=== PATIENT | female | born 1940 | race Caucasian/White ===

== ENCOUNTER 2018-10-07 21:13 | Inpatient (IN) | payer SELFPAY ==
[~2018-10-07] VITALS: Ht 160 cm; Wt 54.2 kg
[2018-10-07] MEDS ORDERED: NKM (21:17)
[2018-10-07 21:54] VITALS: BP 134/72
--- NOTE | 2018-10-07 22:25 | NUR ---
ED Nurse Note: pt refused to draw blood at this time, informed Dr. Figueroa.
--- NOTE | 2018-10-07 22:50 | NUR ---
ED Nurse Note: Blood sample sent to Lab. waiting for urine sample.
[2018-10-07 22:59] LABS: BASOPHILS % (AUTO) 1.6 % (0.0-2.0); EOSINOPHILS % (AUTO) 0.8 % (0.0-3.0); HEMATOCRIT 37.8 % (37.0-47.0); HEMOGLOBIN 13.3 G/DL (12.0-16.0); LYMPHOCYTES % (AUTO) 17.6 % (20.0-45.0); MEAN CORPUSCULAR VOLUME 103 FL (80-99); MONOCYTES % (AUTO) 7.9 % (1.0-10.0); NEUTROPHILS % (AUTO) 72.1 % (45.0-75.0); PLATELET COUNT 241 K/UL (150-450); RED BLOOD COUNT 3.68 M/UL (4.20-5.40); RED CELL DISTRIBUTION WIDTH 11.6 % (11.6-14.8); WHITE BLOOD COUNT 7.2 K/UL (4.8-10.8)
[2018-10-07 23:04] LABS: ANION GAP 13 mmol/L (5-15); BLOOD UREA NITROGEN 19 mg/dL (7-18); CALCIUM 8.8 MG/DL (8.5-10.1); CARBON DIOXIDE 24 MMOL/L (21-32); CHLORIDE 101 MMOL/L (98-107); CREATININE 0.9 MG/DL (0.55-1.30); POTASSIUM 3.5 MMOL/L (3.5-5.1); SODIUM 138 MMOL/L (136-145)
[2018-10-07 23:09] LABS: ALANINE AMINOTRANSFERASE 44 U/L (12-78); ALBUMIN 3.5 G/DL (3.4-5.0); ALBUMIN/GLOBULIN RATIO 0.9 (1.0-2.7); ALKALINE PHOSPHATASE 93 U/L (46-116); ASPARTATE AMINO TRANSFERASE 57 U/L (15-37); BILIRUBIN,TOTAL 0.4 MG/DL (0.2-1.0)
[2018-10-07] MEDS ORDERED: Morphine Sulfate 4mg/ml Inj (IV USE ONLY) IVP ONE (23:45)
[2018-10-08] VITALS (11 sets, daily range): BP systolic 109–157; BP diastolic 53–96
[2018-10-08 00:14] LABS: APPEARANCE,URINE CLEAR; BILIRUBIN, URINE NEGATIVE (NEGATIVE); COLOR,URINE PALE YELLOW; GLUCOSE, URINE (UA) NEGATIVE (NEGATIVE); KETONES,URINE NEGATIVE (NEGATIVE); LEUKOCYTE ESTERASE ,URINE 1+ (NEGATIVE); NITRITE,URINE NEGATIVE (NEGATIVE); PH,URINE 6.5 (4.5-8.0); PROTEIN,URINE 1+ (NEGATIVE); UROBILINOGEN,URINE NORMAL MG/DL (0.0-1.0)
--- NOTE | 2018-10-08 00:21 | Emergency Room Report ---
History of Present Illness General Chief Complaint: Multiple Trauma/Fall Source: Patient Present Illness HPI Patient presents with complaints of left-sided pain points to the hip area and left upper chest area there was a report of the patient falling against a fire hydrant Is unclear if the patient has some underlying psychiatric medical condition She appears to have some flight of thought Has to be refocused several times to obtain appropriate history Denies any short of breath denies any abdominal pain Pain is severe more on the left hip region Allergies: Coded Allergies: No Known Allergies (Unverified , 10/07/18) Patient History Past Medical History: see triage record Pertinent Family History: none Last Menstrual Period: n/a Reviewed Nursing Documentation: PMH: Agreed; PSxH: Agreed Nursing Documentation-PMH Past Medical History: No Stated History Review of Systems All Other Systems: negative except mentioned in HPI Physical Exam Vital Signs Date Time Temp Pulse Resp B/P (MAP) Pulse Ox O2 Delivery O2 Flow Rate FiO2 10/07/18 21:15 97.0 76 18 137/71 99 Room Air Sp02 EP Interpretation: reviewed, normal General Appearance: mild distress - In acute pain Head: normocephalic, atraumatic Eyes: bilateral eye PERRL, bilateral eye EOMI ENT: dry mucus membranes Neck: supple, thyroid normal Respiratory: lungs clear, no retraction, no accessory muscle use Cardiovascular #1: tachycardia Gastrointestinal: non tender, soft Musculoskeletal: other - Tender on palpation of the left hip region Neurologic: alert, responsive Psychiatric: anxious Skin: no rash, warm/dry Lymphatic: no adenopathy Medical Decision Making Diagnostic Impression: Primary Impression: Intertrochanteric fracture ER Course Multiple differentials and consideration Patient also has a difficult history of present illness she appears to have some psychiatric condition possibly dementia Patient's blood work is at baseline levels however CT imaging does confirm hip fracture Orthopedic surgery is consulted general medicine consulted for admission and patient will require further inpatient care Labs Test 10/07/18 22:40 10/07/18 23:55 White Blood Count 7.2 K/UL (4.8-10.8) Red Blood Count 3.68 M/UL (4.20-5.40) Hemoglobin 13.3 G/DL (12.0-16.0) Hematocrit 37.8 % (37.0-47.0) Mean Corpuscular Volume 103 FL (80-99) Mean Corpuscular Hemoglobin 36.2 PG (27.0-31.0) Mean Corpuscular Hemoglobin Concent 35.3 G/DL (32.0-36.0) Red Cell Distribution Width 11.6 % (11.6-14.8) Platelet Count 241 K/UL (150-450) Mean Platelet Volume 6.2 FL (6.5-10.1) Neutrophils (%) (Auto) 72.1 % (45.0-75.0) Lymphocytes (%) (Auto) 17.6 % (20.0-45.0) Monocytes (%) (Auto) 7.9 % (1.0-10.0) Eosinophils (%) (Auto) 0.8 % (0.0-3.0) Basophils (%) (Auto) 1.6 % (0.0-2.0) Sodium Level 138 MMOL/L (136-145) Potassium Level 3.5 MMOL/L (3.5-5.1) Chloride Level 101 MMOL/L (98-107) Carbon Dioxide Level 24 MMOL/L (21-32) Anion Gap 13 mmol/L (5-15) Blood Urea Nitrogen 19 mg/dL (7-18) Creatinine 0.9 MG/DL (0.55-1.30) Estimat Glomerular Filtration Rate mL/min (>60) Glucose Level 117 MG/DL (74-106) Calcium Level 8.8 MG/DL (8.5-10.1) Total Bilirubin 0.4 MG/DL (0.2-1.0) Aspartate Amino Transf (AST/SGOT) 57 U/L (15-37) Alanine Aminotransferase (ALT/SGPT) 44 U/L (12-78) Alkaline Phosphatase 93 U/L (46-116) Total Creatine Kinase 81 U/L (26-308) Creatine Kinase MB 1.8 NG/ML (0.0-3.6) Creatine Kinase MB Relative Index 2.2 Total Protein 7.4 G/DL (6.4-8.2) Albumin 3.5 G/DL (3.4-5.0) Globulin 3.9 g/dL Albumin/Globulin Ratio 0.9 (1.0-2.7) Lipase 232 U/L (73-393) Serum Alcohol 106 mg/dL Urine Color Pale yellow Urine Appearance Clear Urine pH 6.5 (4.5-8.0) Urine Specific [place] 1.015 (1.005-1.035) Urine Protein 1+ (NEGATIVE) Urine Glucose (UA) Negative (NEGATIVE) Urine Ketones Negative (NEGATIVE) Urine Blood 5+ (NEGATIVE) Urine Nitrite Negative (NEGATIVE) Urine Bilirubin Negative (NEGATIVE) Urine Urobilinogen Normal MG/DL (0.0-1.0) Urine Leukocyte Esterase 1+ (NEGATIVE) Urine RBC Tntc /HPF (0 - 2) Urine WBC 2-4 /HPF (0 - 2) Urine Squamous Epithelial Cells Few /LPF (NONE/OCC) Urine Bacteria Few /HPF (NONE) EKG Diagnostic Results Rate: normal Rhythm: NSR ST Segments: no acute changes Rhythm Strip Diag. Results EP Interpretation: yes Rate: 90 Rhythm: NSR, no PVC's, no ectopy Chest X-Ray Diagnostic Results Chest X-Ray Diagnostic Results : Chest X-Ray Ordered: Yes # of Views/Limited/Complete: 1 View Indication: Chest Pain EP Interpretation: Yes Interpretation: no consolidation, no effusion, no pneumothorax Impression: No acute disease - questionable previous foreign body left mid chest CT/MRI/US Diagnostic Results CT/MRI/US Diagnostic Results : Impression CT abdomen pelvisCT ABDOMEN & PELVIS Without Contrast: Diagnostic sensitivitylimited secondaryto the absence of IVcontrast. Small to moderate hiatal hernia. Hepatomegalywith diffuse steatosis. No evidence of solid or hollow viscus injury. Indeterminate 15 mmleft adrenal nodule. No evidence of hemoperitoneumor pneumoperitoneum. Comminuted left intertrochanteric hip fracture with moderate impaction. CT L-spineCT L SPINE: Diffuse osteopenia and multilevel degenerative changes. Bilateral spondylolysis L4/L5with grade 1 spondylolisthesis. Alignment is otherwise anatomic. Negative for compression or other acute fracture deformity. Last Vital Signs Date Time Temp Pulse Resp B/P (MAP) Pulse Ox O2 Delivery O2 Flow Rate FiO2 10/07/18 21:15 97.0 76 18 137/71 99 Room Air Status: improved Disposition: ADMITTED INPATIENT Condition: Serious Referrals: NOT CHOSEN IPA/,REFERRING (PCP) Sari Figueroa DO Oct 08, 2018 00:21
--- NOTE | 2018-10-08 01:02 | NUR ---
TRANSFER TO FLOOR: Patient transferred to [facility] as ordered . Report given to Nasrin/ARIC. Belongings SENT WITH pt and rechecked with RN.
--- NOTE | 2018-10-08 01:45 | NUR ---
NURSE NOTES: Received report from November RN Patient arrived from ED @0110. AOx3. VSS, no shortness of breath. Pain 05/01. left hip. Skin intact. Per patient, no health history. Drinks alcohol but will not say how often. Per ED, possibly homeless. Received orders from Dr. Lundberg. Says no DVT order at this time. Regular diet and morphine 2 mg IVP Q4H. No home meds. Boyfriend at bedside. Bed low, call light within reach. Addendum: 10/08/18 at 0153 by DYLAN JOHNSON RN NURSE NOTES: Neuro checks wnl. Addendum: 10/08/18 at 0221 by DYLAN JOHNSON RN more catheter intact, draining well, urine yellow.
[2018-10-08] MEDS: Morphine Sulfate 2mg/ml Inj(IV/IM USE ONLY) IVP PRN ×2 (02:17→08:18)
[2018-10-08 03:27] LABS: CKMB 1.8 NG/ML (0.0-3.6)
--- NOTE | 2018-10-08 07:35 | NUR ---
NURSE NOTES: WALKING ROUNDS DONE WITH OUTGOING RN.PATIENT AWAKE IN BED. SIGNIFICANT OTHER AT BEDSIDE. QUESTIONS ANSWERED. NEEDS MET AT THIS TIME. DISCUSSED PLAN OF CARE FOR THE DAY.VERBALIZED UNDERSTANDING. BED IN LOW AND LOCKED POSITION. CALL LIGHT WITHIN REACH.
--- NOTE | 2018-10-08 08:37 | NUR ---
HAND-OFF: Report given to ARIC FINLEY PATIENT STABLE.
--- NOTE | 2018-10-08 09:35 | Diagnostic Imaging Report ---
Indication: Abdominal pain Technique: Continuous helical transaxial imaging of the abdomen and pelvis was obtained from the lung bases to the pubic symphysis. No intravenous contrast was administered. Coronal 2-D reformats were also obtained. Automatic Exposure Control was utilized. Total Dose length Product (DLP): 587.[address] Dose Index Volume (CTDIvol): 10.99 mGy Comparison: none Findings: Mild reticular densities at the lung bases demonstrated. Hiatal hernia noted. Gallbladder stones versus sludge suspected in the dependent part of the gallbladder. Moderate aortoiliac calcifications are present. The appendix is air-filled and essentially normal. Bladder noted and unremarkable. Uterus is present and not evaluated well on this examination. There is evidence of an acute fracture of the intertrochanteric region of the left hip incidentally noted on this examination. Bones are osteopenic. There is hypertrophy of the facets in the lumbar spine at multiple levels. IMPRESSION: Acute intertrochanteric fracture of the left hip suboptimally evaluated on this examination as this is an incidental finding. No acute findings in the abdomen or pelvis identified. Gallbladder stones versus sludge Duodenal diverticulum Atherosclerotic disease. Normal appendix. Degenerative changes of the spine Hiatal hernia Mild reticular densities nonspecific at the lung bases. [facility] has communicated the preliminary results to the Emergency Department. Their findings are largely concordant with this report. The CT scanner at [facility] is accredited by the [employer] and the scans are performed using dose optimization techniques as appropriate to a performed exam including Automatic Exposure control.
--- NOTE | 2018-10-08 09:37 | Diagnostic Imaging Report ---
Indication: Back pain Technique: Continuous helical transaxial imaging of the lumbar spine was obtained from the lung bases to the pubic symphysis. No IV contrast was administered. Coronal 2-D reformats were also obtained. Study obtained in a Siemens sensation [address] Total Dose length Product (DLP): [address] Dose Index Volume (CTDIvol): 0.15, 10.99 mGy Comparison: None Findings: There is no acute fracture identified. The bones are moderately osteopenic. There is a moderate to severe disc disease at L2-3 with sclerosis and endplate spur formation, vacuum narrowing of the disc. There is narrowing of the disks elsewhere as well mild to moderate degree within the remainder of the lumbar spine. There is a mild anterolisthesis at L4-5. There is sclerosis irregularity and hypertrophy of the lumbar facets at multiple levels. Aorta is moderately calcified. IMPRESSION: No acute fracture identified. Degenerative changes as described above The CT scanner at [facility] is accredited by the [employer] and the scans are performed using dose optimization techniques as appropriate to a performed exam including Automatic Exposure control.
[2018-10-08 11:08] LABS: INR 0.9 (0.9-1.1)
--- NOTE | 2018-10-08 12:21 | NUR ---
CASE MANAGEMENT:REVIEW 78 YR OLD FEMALE BIBA FROM STREET CC: RAN INTO FIRE HYDRATE SI: DEHYDRATION. UNABLE TO AMBULATE ACUTE INTERTROCHANTERIC FRACTURE 97.0 76 18 137/71 99% ON RA BUN+19 IS: 500CC NS BOLUS IV ZOFRAN IV MORPHINE CT ABD/PELVIS/SPINE CXR : TO MED/SURG 3 EAST PLAN: SOCIAL SERVICE CONSULT INTERQUAL CRITERIA MET
--- NOTE | 2018-10-08 12:33 | Diagnostic Imaging Report ---
Indication: Dyspnea Comparison: None A single view chest radiograph was obtained. Findings: Bones are osteopenic. Cardiac silhouette is enlarged. Lungs are clear. No pleural effusion seen. Aorta is calcified. IMPRESSION: No acute disease
--- NOTE | 2018-10-08 12:42 | Diagnostic Imaging Report ---
Indications: Left hip pain Findings: Two views of the left hip and AP pelvis were obtained. There is a known fracture of the left intertrochanteric region of the hip better demonstrated on the CT of abdomen. The pelvis x-ray shows comminution of the fracture which is in mild varus angulation. The bones are osteopenic. Marmolejo catheter is present. Degenerative changes of the lower lumbar spine, sacroiliac joints and both hip joints noted. Degenerative changes of the pubic symphysis is noted. IMPRESSION: Acute left intertrochanteric hip fracture
--- NOTE | 2018-10-08 15:03 | NUR ---
Social Service Note Unable to obtain history from patient. Patient's boyfriend will visit patient this afternoon per primary nurse. Will meet with boyfriend Ovidio to obtain history.
--- NOTE | 2018-10-08 15:35 | Cardiology Report ---
APPROVED REPORT EKG Measurement Heart [id number] Sinus tachycardia Possible Left atrial enlargement Nonspecific ST and T wave abnormality Abnormal ECG
[2018-10-08] MEDS ORDERED: EPINEPHrine 1mg/1ml Amp ONE (16:39)
[2018-10-08] MEDS ORDERED: Bacitracin 50000 Units Vial ONE (16:40)
[2018-10-08] MEDS ORDERED: Bupivacaine 0.25% Inj 30ml INJ ONE (16:40)
--- NOTE | 2018-10-08 17:00 | NUR ---
NURSE NOTES: PATIENT SENT TO SURGERY VIA BED WITH JET RN ( OR) AT BEDSIDE. NO FAMILY OR FRIENDS HERE. JASPREET SIGNIFICANT OTHER WILL RETURN SOMETIME THIS EVENING.
[2018-10-08] MEDS ORDERED: Bupivacaine 0.5% Inj 30 ml vial INJ ONE (17:17)
[2018-10-08] MEDS ORDERED: Duramorph PF 5mg/10ml amp ONE (17:17)
[2018-10-08] MEDS ORDERED: Propofol 200mg/20ml IV ONE (17:19)
[2018-10-08] MEDS ORDERED: fentaNYL 100 mcg/2 mL IV ONE (17:19)
--- NOTE | 2018-10-08 17:38 | Anethesia Preoperative Eval ---
Anesthesia Pre-op PMH/ROS General Date of Evaluation: Oct 08, 2018 Time of Evaluation: 17:35 Anesthesiologist: Nadine ASA Score: ASA 3 Mallampati Score Class I : Soft palate, uvula, fauces, pillars visible Class II: Soft palate, uvula, fauces visible Class III: Soft palate, base of uvula visible Class IV: Only hard plate visible Mallampati Classification: Class II Surgeon: Sawyer Diagnosis: L hip Fx Surgical Procedure: ORIF of L hip Fx Anesthesia History: none Family History: no anesthesia problems Allergies: Coded Allergies: No Known Allergies (Unverified , 10/07/18) Medications: see eMAR Patient NPO?: Yes NPO Date: Oct 08, 2018 NPO Time: 0838 Past Medical History Cardiovascular: Reports: HTN - mild; Denies: CAD, [place], valve dz, arrhythmia, other Pulmonary: Denies: asthma, COPD, [place], other Gastrointestinal/Genitourinary: Reports: GERD; Denies: CRI, ESRD, other Neurologic/Psychiatric: Reports: depression/anxiety; Denies: dementia, CVA, TIA, other Endocrine: Denies: DM, hypothyroidism, steroids, other HEENT: Denies: cataract (L), cataract (R), glaucoma, JACKSON (L), JACKSON (R), other Hematology/Immune: Denies: anemia, DVT, bleeding disorder, other Musculoskeletal/Integumentary: Reports: DJD; Denies: OA, RA, DDD, edema, other PMH Narrative: as above PSxH Narrative: see H&P Anesthesia Pre-op Phys. Exam Physician Exam Last Vital Signs Date Time Temp Pulse Resp B/P (MAP) Pulse Ox O2 Delivery O2 Flow Rate FiO2 10/08/18 15:51 98.8 106 19 130/89 (103) 97 10/08/18 09:00 Room Air Constitutional: NAD Neurologic: CN 2-12 intact Cardiovascular: RRR Respiratory: CTA Airway Exam Mallampati Score: Class II MO: limited Neck: stiff ROM: limited Teeth: missing Dentures: no upper, no lower Anesthesia Pre-op A/P Labs Hematology Test 10/07/18 22:40 White Blood Count 7.2 K/UL (4.8-10.8) Red Blood Count 3.68 M/UL (4.20-5.40) L Hemoglobin 13.3 G/DL (12.0-16.0) Hematocrit 37.8 % (37.0-47.0) Mean Corpuscular Volume 103 FL (80-99) H Mean Corpuscular Hemoglobin 36.2 PG (27.0-31.0) H Mean Corpuscular Hemoglobin Concent 35.3 G/DL (32.0-36.0) Red Cell Distribution Width 11.6 % (11.6-14.8) Platelet Count 241 K/UL (150-450) Mean Platelet Volume 6.2 FL (6.5-10.1) L Neutrophils (%) (Auto) 72.1 % (45.0-75.0) Lymphocytes (%) (Auto) 17.6 % (20.0-45.0) L Monocytes (%) (Auto) 7.9 % (1.0-10.0) Eosinophils (%) (Auto) 0.8 % (0.0-3.0) Basophils (%) (Auto) 1.6 % (0.0-2.0) Coagulation Test 10/08/18 10:30 Prothrombin Time 10.0 SEC (9.30-11.50) Prothromb Time International Ratio 0.9 (0.9-1.1) Activated Partial Thromboplast Time 25 SEC (23-33) Chemistry Test 10/07/18 22:40 Sodium Level 138 MMOL/L (136-145) Potassium Level 3.5 MMOL/L (3.5-5.1) Chloride Level 101 MMOL/L (98-107) Carbon Dioxide Level 24 MMOL/L (21-32) Anion Gap 13 mmol/L (5-15) Blood Urea Nitrogen 19 mg/dL (7-18) H Creatinine 0.9 MG/DL (0.55-1.30) Estimat Glomerular Filtration Rate mL/min (>60) Glucose Level 117 MG/DL (74-106) H Calcium Level 8.8 MG/DL (8.5-10.1) Total Bilirubin 0.4 MG/DL (0.2-1.0) Aspartate Amino Transf (AST/SGOT) 57 U/L (15-37) H Alanine Aminotransferase (ALT/SGPT) 44 U/L (12-78) Alkaline Phosphatase 93 U/L (46-116) Total Creatine Kinase 81 U/L (26-308) Creatine Kinase MB 1.8 NG/ML (0.0-3.6) Creatine Kinase MB Relative Index 2.2 Troponin I 0.007 ng/mL (0.000-0.056) Total Protein 7.4 G/DL (6.4-8.2) Albumin 3.5 G/DL (3.4-5.0) Globulin 3.9 g/dL Albumin/Globulin Ratio 0.9 (1.0-2.7) L Lipase 232 U/L (73-393) Risk Assessment & Plan Assessment: ASA 3 Plan: SAB vs GA Status Change Before Surgery: No Pre-Antibiotics Drug: Ancef 1gr Given Within 1 Hr of Incision: Yes Time Given: 18:05 Aman Mccoy MD Oct 08, 2018 17:38
[2018-10-08] MEDS ORDERED: NS Irrig 1000ml ONE (18:00)
[2018-10-08] MEDS ORDERED: Sterile Water Irrig 1000ml IRRIG ONE (18:00)
[2018-10-08] MEDS ORDERED: LR 1000ml ONE (18:00)
--- NOTE | 2018-10-08 18:15 | Pre-Procedure Note/Attestation ---
Pre-Procedure Note/Attestation Complete Prior to Procedure Planned Procedure: left Procedure Narrative: Left hip nailing Indications for Procedure Pre-Operative Diagnosis: Left hip intertrochanteric fracture Attestation I attest that I discussed the nature of the procedure; its benefits; risks and complications; and alternatives (and the risks and benefits of such alternatives ), prior to the procedure, with the patient (or the patient's legal artists' booking representative). I attest that, if there was a reasonable possibility of needing a blood transfusion, the patient (or the patient's legal artists' booking representative) was given the [facility] standardized written summary, pursuant to the Julito Tiffanie Blood Safety Act ([place] Health and Safety Code # 1645, as amended). I attest that I re-evaluated the patient just prior to the surgery and that there has been no change in the patient's H&P, except as documented below: Eulogio Jacques MD Oct 08, 2018 18:15
--- NOTE | 2018-10-08 19:22 | Immediate Post-Op Evaluation ---
Immediate Post-Op Evalulation Immediate Post-Op Evalulation Procedure: L hip Fx ORIF Date of Evaluation: Oct 08, 2018 Time of Evaluation: 19:20 IV Fluids: 1000 Blood Products: none Estimated Blood Loss: 100 Urinary Output: 100 Blood Pressure Systolic: 110 Blood Pressure Diastolic: 60 Pulse Rate: 86 Respiratory Rate: 20 O2 Sat by Pulse Oximetry: 98 Temperature (Fahrenheit): 97.7 Pain Score (1-10): 1 Nausea: No Vomiting: No Patient Status: reacts, patent, none Hydration Status: adequate Aman Mccoy MD Oct 08, 2018 19:21
--- NOTE | 2018-10-08 19:26 | NUR ---
NURSE NOTES: Report taken from ARIC Case. Patient is off the unit in the OR.
--- NOTE | 2018-10-08 19:28 | NUR ---
HAND-OFF: Report given to VERONICA Keith RN.
--- NOTE | 2018-10-08 19:37 | Brief Operative Note ---
Immediate Post Operative Note Operative Note Pre-op Diagnosis: Left hip intertrochanteric fracture Procedure: Left hip nailing Post-op Diagnosis: Same Post-op Diagnosis: same as pre-op Findings: consistent w/pre-op dx studies Surgeon: Sawyer Anesthesia: general Specimen: none Complications: none Condition: stable Fluids: 100 ml Estimated Blood Loss: minimal Drains: none Implant(s) used?: No Eulogio Jacques MD Oct 08, 2018 19:37
--- NOTE | 2018-10-08 19:45 | History and Physical Report ---
DATE OF ADMISSION: 10/07/2018 REASON FOR ADMISSION: Fracture. HISTORY OF PRESENT ILLNESS: This is a 78-year-old homeless patient who fell at outside yesterday. She stated that it was dark and she tripped against fire hydrant. The patient was admitted to the hospital after being found to have a hip/femur fracture. She has been evaluated and is anticipated to undergo surgery this afternoon. On my evaluation, the patient is a very poor historian, however, her boyfriend is at bedside and he is able to provide most of the history. She denies any underlying medical issues such as cardiac, pulmonary, endocrine, or renal. She denies any carcinoma. She states she is not from the local area, but can stay with her boyfriend after discharge. HOME MEDICATIONS: None reported. SURGERIES: None reported. ALLERGIES: None reported. SOCIAL HISTORY: She admits to tobacco and alcohol use. Denies substance abuse or marijuana. REVIEW OF SYSTEMS: Denies any headaches, hematemesis, melena, hematochezia, night sweats, or weight loss. PHYSICAL EXAMINATION: GENERAL: Reveals a 78-year-old female. HEENT: Unremarkable. CHEST: Clear breath sounds bilaterally. HEART: Normal heart sounds. ABDOMEN: Soft. EXTREMITIES: No edema. NEUROLOGIC: Nonfocal. LABORATORY AND DIAGNOSTIC DATA: Lab testing shows normal CBC and BMP. Glucose 117. X-rays of the hip show a left intertrochanteric fracture. IMPRESSION: 1. Left hip fracture. 2. Homelessness. 3. Probable underlying psych disorder versus dementia. DISCUSSION: The patient is agreeable to surgery. Her boyfriend also concurs. She will be kept NPO and will undergo surgery this afternoon. It is my understanding that this has been scheduled. We will initiate IV fluids. Initiate DVT prophylaxis after surgery. We will follow carefully as transmission tester. Beka Lundberg M.D. DR: BIANCA JOB#: [id number] CC:
[2018-10-08] MEDS ORDERED: Metoclopramide 10mg/2ml Inj IVP SCH (19:46)
[2018-10-08] MEDS ORDERED: D5 1/2NS w/KCl 20mEq 1,000 ML IV SCH (21:00)
--- NOTE | 2018-10-08 23:15 | Consultation ---
DATE OF CONSULTATION: 10/08/2018 ORTHOPEDIC CONSULTATION CONSULTING PHYSICIAN: Eulogio Jacques M.D. REQUESTING PHYSICIAN: Beka Lundberg M.D. DIAGNOSIS: Left intertrochanteric hip fracture. HISTORY OF PRESENT ILLNESS: The patient is a 78-year-old woman with memory issues who slipped and fell. The history is unclear if she is unable to relate exactly what happened. PAST MEDICAL HISTORY: Unknown. ALLERGIES: Unknown. PHYSICAL EXAMINATION: GENERAL: She is resting comfortably in bed. EXTREMITIES: Left lower extremity movement causes pain at the left hip. NEUROLOGIC: Distal neurovascular examination of the left lower extremity is grossly intact. DIAGNOSTIC DATA: Radiographs, AP pelvis and left hip reveal a displaced comminuted intertrochanteric hip fracture. ASSESSMENT AND PLAN: The patient sustained a left intertrochanteric hip fracture. I have recommended hip nailing. All risks, benefits, and alternatives were reviewed in great detail. We will proceed to the operating room when available. Thank you for the opportunity to consult. Eulogio Jacques M.D. DR: BEVERLY/LUIS A JOB#: [id number] CC:
--- NOTE | 2018-10-08 23:30 | Operative Note - Dictated ---
DATE OF OPERATION: 10/08/2018 SURGEON: Eulogio Jacques M.D. MEDICAL TECHNICIANS: None. ANESTHESIA: General. COMPLICATIONS: None. ANTIBIOTICS: Ancef. PREOPERATIVE DIAGNOSIS: Left displaced intertrochanteric hip fracture. POSTOPERATIVE DIAGNOSIS: Left displaced intertrochanteric hip fracture. PROCEDURE PERFORMED: Left hip short nailing using a Parker and gamma nail with single hip screw and distal interlocking screw. BACKGROUND: The patient slipped and fell. She sustained the above injury. All risks, benefits, and alternatives of surgical intervention were discussed in great detail. Risks included, but were not limited to, bleeding, infection, neurovascular injury, need for additional surgical intervention, failure of pain relief, arthrofibrosis, complications of anesthesia, blood clots, stroke, heart attack, and potentially . She understood these risks, amongst others, and consent was signed. PROCEDURE IN DETAIL: The patient was brought into the operating room and placed supine on the operating room table. The fracture table was set up and all bony prominences appropriately padded. Fluoroscopic imaging confirmed appropriate fracture reduction in the anatomic position. The left hip was again verified for surgical site and prepped and draped in standard sterile fashion. An incision was created in line with the femur proximal to the trochanter and a greater trochanteric tip starting point was obtained. It was then over drilled and the 125-degree gamma 3 nail was secured into position. A center/center hip pin was then secured into position measuring 90 mm. It was compressed and locked, but to allow sliding. A distal interlocking static screw was then secured into position. All wounds were copiously irrigated and reapproximated using #0 Vicryl, 2-0 Vicryl, and Monocryl for skin care. Steri-Strips were used over Mastisol. Dry sterile dressing was applied. She tolerated the procedure well. There were no complications. I attest I performed the entire operation. She was transferred to recovery in good condition. Eulogio Jacques M.D. DR: HENRIQUE JOB#: [id number] CC:
[2018-10-09] VITALS: BP 112/62
[2018-10-09] MEDS: ceFAZolin 2gm/50ml Premix 50 ML IV SCH ×2 (02:11→09:38)
[2018-10-09 04:00] VITALS: BP 117/64
--- NOTE | 2018-10-09 06:58 | Pulmonology Progress Note ---
Assessment/Plan Assessment/Plan IMPRESSION: 1. Left hip fracture. S/p ORIF 2. Homelessness. 3. Probable underlying psych disorder versus dementia. DISCUSSION: Continue DVT prophylaxis. 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 Beka Lundberg M.D. Subjective Interval Events: POD #1; s/p ORIF; feeling well Constitutional: Reports: no symptoms HEENT: Repors: no symptoms Respiratory: Reports: no symptoms Cardiovascular: Reports: no symptoms Gastrointestinal/Abdominal: Reports: no symptoms Genitourinary: Reports: no symptoms Allergies: Coded Allergies: No Known Allergies (Unverified , 10/07/18) Objective Last 24 Hour Vital Signs Date Time Temp Pulse Resp B/P (MAP) Pulse Ox O2 Delivery O2 Flow Rate FiO2 10/09/18 04:00 98.6 104 17 117/64 (81) 96 10/09/18 00:00 98.8 105 17 112/62 (79) 90 10/08/18 21:00 Room Air 10/08/18 20:20 97.8 93 17 122/60 99 Room Air 10/08/18 20:00 91 14 114/62 98 Room Air 10/08/18 19:50 95 18 115/71 100 Nasal Cannula 3 10/08/18 19:40 93 17 110/53 100 Nasal Cannula 3 10/08/18 19:30 92 16 109/58 100 Nasal Cannula 3 10/08/18 19:21 86 20 98 10/08/18 19:18 97.7 96 20 110/67 100 Nasal Cannula 3 10/08/18 15:51 98.8 106 19 130/89 (103) 97 10/08/18 12:00 98.7 108 20 134/85 (101) 98 10/08/18 09:00 Room Air 10/08/18 08:48 98.2 10/08/18 08:00 98.8 103 20 157/96 (116) 96 Intake and Output 10/08/18 10/09/18 19:00 07:00 Intake Total 540 ml 410 ml Output Total 700 ml Balance 540 ml -290 ml Intake Oral 240 ml 360 ml IV Total 300 ml 50 ml Output Urine Total 700 ml # Voids 1 General Appearance: no acute distress HEENT: normocephalic Respiratory/Chest: chest wall non-tender, lungs clear Cardiovascular: normal peripheral pulses, normal rate Abdomen: normal bowel sounds, soft, non tender Laboratory Tests 10/08/18 10:30: Prothrombin Time 10.0, Prothromb Time International Ratio 0.9, Activated Partial Thromboplast Time 25 Current Medications Medications (Trade) Dose Ordered Sig/Noel Route PRN Reason Start Time Stop Time Status Last Admin Dose Admin Acetaminophen/ Hydrocodone Bitart ([place] 5/325) 2 tab Q6H PRN ORAL Severe Pain (Pain Scale 7-10) 10/08/18 19:45 10/15/18 19:44 Bisacodyl (Dulcolax) 10 mg Q12H PRN RECTAL Constipation 10/08/18 19:45 11/07/18 19:44 Cefazolin Sodium 50 ml @ 100 mls/hr Q8H IV 10/09/18 02:00 10/09/18 10:29 10/09/18 02:11 Dextrose/ Electrolytes 1,000 ml @ 75 mls/hr [id number] IV 10/08/18 21:00 11/07/18 20:59 10/08/18 21:03 Docusate Sodium (Colace) 100 mg THREE TIMES A DAY ORAL 10/09/18 09:00 11/08/18 08:59 Enoxaparin Sodium (Lovenox) 40 mg DAILY SUBQ 10/09/18 09:00 10/19/18 08:59 Hydromorphone HCl (Dilaudid) 2 mg Q3H PRN SUBQ breakthrough pain 10/08/18 20:00 10/15/18 19:44 Morphine Sulfate (Morphine Sulfate) 4 mg Q3H PRN IVP Severe Pain (Pain Scale 7-10) 10/08/18 19:45 10/15/18 19:44 Beka Lundberg MD Oct 09, 2018 06:58
--- NOTE | 2018-10-09 07:19 | NUR ---
HAND-OFF: Report given to ARIC Anderson. Patient awake and VS stable.
[2018-10-09 07:32] LABS: ANION GAP 8 mmol/L (5-15); BLOOD UREA NITROGEN 15 mg/dL (7-18); CALCIUM 8.2 MG/DL (8.5-10.1); CARBON DIOXIDE 26 MMOL/L (21-32); CHLORIDE 102 MMOL/L (98-107); CREATININE 0.9 MG/DL (0.55-1.30); POTASSIUM 4.1 MMOL/L (3.5-5.1); SODIUM 136 MMOL/L (136-145)
--- NOTE | 2018-10-09 07:34 | NUR ---
NURSE NOTES: Report received from ARIC Mallory. Pt in bed, awake, talkative, no complaints of pain, SCD on and working, pt's boyfriend at bedside, pt eating breakfast, bed in lowest position, call light within reach.
--- NOTE | 2018-10-09 07:50 | 48 Hour Post Anesthesia Eval ---
Post Anesthesia Evaluation Procedure: L hip Fx ORIF Date of Evaluation: Oct 09, 2018 Time of Evaluation: 06:19 Blood Pressure Systolic: 117 0: 64 Pulse Rate: 104 Respiratory Rate: 17 Temperature (Fahrenheit): 98.6 O2 Sat by Pulse Oximetry: 96 Airway: patent Nausea: No Vomiting: No Pain Intensity: 2 Hydration Status: adequate Cardiopulmonary Status: Stable Mental Status/LOC: patient returned to baseline Follow-up Care/Observations: 0 Post-Anesthesia Complications: 0 Follow-up care needed: N/A Darrell Rosales MD Oct 09, 2018 07:50
[2018-10-09 07:56] LABS: BASOPHILS % (AUTO) 0.9 % (0.0-2.0); EOSINOPHILS % (AUTO) 0.1 % (0.0-3.0); HEMATOCRIT 29.4 % (37.0-47.0); HEMOGLOBIN 10.1 G/DL (12.0-16.0); LYMPHOCYTES % (AUTO) 13.8 % (20.0-45.0); MEAN CORPUSCULAR VOLUME 104 FL (80-99); NEUTROPHILS % (AUTO) 74.3 % (45.0-75.0); PLATELET COUNT 155 K/UL (150-450); RED BLOOD COUNT 2.81 M/UL (4.20-5.40); RED CELL DISTRIBUTION WIDTH 11.6 % (11.6-14.8); WHITE BLOOD COUNT 8.9 K/UL (4.8-10.8)
[2018-10-09 08:00] VITALS: BP 126/77
[2018-10-09] MEDS: Docusate 100mg cap ORAL SCH ×3 (08:14→17:14)
[2018-10-09] MEDS: Enoxaparin 40mg Inj SUBQ SCH (08:14)
[2018-10-09 12:00] VITALS: BP 114/75
--- NOTE | 2018-10-09 12:09 | NUR ---
Social Service Note SW unable to obtain history from patient. Patient is a poor historian and was unable to answer basic question appropriately. Patient's boyfriend not a bedside Ovidio. JAY spoke with patient's brother Frederick [phone]. Frederick is limited with information regarding patient. Frederick states patient and his brother have been together for probably 20 years. For the past 8 years they have had periods of homelessness. Brother states they both drink Vodka on a regular basis. Due to this event patient's brother has rented them an apartment for temporary housing [address] [place] [id number]. Boyfriend doesn't have a phone. JAY explained to brother that when Ovidio contacts him to provide him SW contact information. Will monitor and follow up.
[2018-10-09] MEDS ORDERED: Tubing IV Secondary IV ONE (13:13)
--- NOTE | 2018-10-09 13:41 | NUR ---
NURSE NOTES: Pt worked with Physical Therapy, able to take a few steps with walker, up to chair for 2.5 hours. Discontinued Marmolejo, 225ml karoline urine out. Discussed with pt need to urinate within next 6 hours. Pt verbalizes understanding
--- NOTE | 2018-10-09 13:58 | NUR ---
NURSE NOTES: Left message for Dr. Lundberg, pt's HR 115 114/75. EKG shows sinus tachy.
--- NOTE | 2018-10-09 14:14 | NUR ---
CASE MANAGEMENT:REVIEW 10/09/18 SI: POD #1 S/P LT HIP SHORT NAILING 100.4 106 18 126/77 95% ON RA h/h-10.129.4 IS: LOVENOX SQ QD COLACE PO TID DILAUDID SQ Q3HRS PRN : MED/SURG STATUS 3 EAST PLAN:: WEIGHT BEARING TOLERATED
--- NOTE | 2018-10-09 14:20 | NUR ---
DISCHARGE PLAN PLAN IS FOR PATIENT TO RETURN HOME UPON DISCHARGE PLEASE SEE SOCIAL WORKERS NOTE ON 10/09/18 AT [id number]
[2018-10-09 16:00] VITALS: BP 124/79
--- NOTE | 2018-10-09 16:12 | NUR ---
P.T Note: P.T evaluation completed and treatment initiated. Please refer to P.T evaluation for current functional status. Pt is alert , oriented to self and place but not to time and current situation. Pt is pleasantly confused however follows simple one step commands. Pt is limited by L hip pain aggravated by movement initiation and fear of falling resulting resistance with mobility. Pt displays poor safety awareness and currently require MAX A X 1 , extended time and constant verbal and manual cues to initiate and complete Bed mobility and transfer mobility tasks. Pt was only able to take 3-4 tiny steps using the FWW and MOD A X 1. Pt is high fall risk and would require extensive rehab therefore needed SNF VS home with P.T. at UT. POC established. Will see patient for therapy during stay for ther ex, ADL/functional mobility training and gait training using the FWW until [place]. Thank you for this referral.
--- NOTE | 2018-10-09 16:20 | Diagnostic Imaging Report ---
INDICATION: Pain, intraoperative TECHNIQUE: Intraoperative imaging Fluoroscopy time: 24.3 seconds Total dose: 0.83041 mGym2 Total number of images: 4 COMPARISON: 10/08/2018 FINDINGS: Intraoperative images document surgical repair of previously demonstrated left hip intertrochanteric fracture with medullary antonette and compression screw IMPRESSION: Intraoperative imaging, as described
--- NOTE | 2018-10-09 19:42 | NUR ---
HAND-OFF: Report given to ARIC Mallory.
[2018-10-09 20:00] VITALS: BP 121/75
[2018-10-10] VITALS: BP 109/72
[2018-10-10 04:00] VITALS: BP 118/73
--- NOTE | 2018-10-10 07:05 | NUR ---
HAND-OFF: Report given to ARIC Anderson. Patient awake and VS stable.
--- NOTE | 2018-10-10 07:07 | NUR ---
NURSE NOTES: Report received from ARIC Mallory. Pt in bed, awake, talkative, no complaints of pain, no apparent distress noted, bed in lowest position, call light within reach.
[2018-10-10 07:46] LABS: BASOPHILS % (AUTO) 0.8 % (0.0-2.0); EOSINOPHILS % (AUTO) 0.1 % (0.0-3.0); HEMATOCRIT 28.2 % (37.0-47.0); HEMOGLOBIN 9.6 G/DL (12.0-16.0); LYMPHOCYTES % (AUTO) 11.6 % (20.0-45.0); MEAN CORPUSCULAR VOLUME 103 FL (80-99); MONOCYTES % (AUTO) 10.6 % (1.0-10.0); NEUTROPHILS % (AUTO) 76.9 % (45.0-75.0); PLATELET COUNT 151 K/UL (150-450); RED BLOOD COUNT 2.74 M/UL (4.20-5.40); RED CELL DISTRIBUTION WIDTH 11.3 % (11.6-14.8)
[2018-10-10 07:52] LABS: ANION GAP 12 mmol/L (5-15); BLOOD UREA NITROGEN 12 mg/dL (7-18); CALCIUM 8.7 MG/DL (8.5-10.1); CARBON DIOXIDE 24 MMOL/L (21-32); CHLORIDE 99 MMOL/L (98-107); CREATININE 0.8 MG/DL (0.55-1.30); POTASSIUM 3.7 MMOL/L (3.5-5.1); SODIUM 135 MMOL/L (136-145)
[2018-10-10 08:00] VITALS: BP 119/71
[2018-10-10] MEDS: Docusate 100mg cap ORAL SCH ×3 (08:28→17:21)
[2018-10-10] MEDS: Enoxaparin 40mg Inj SUBQ SCH (08:31)
[2018-10-10] MEDS: HYDROcodone/Acetamin 5/325 tab ORAL PRN ×2 (09:50→17:21)
[2018-10-10 12:00] VITALS: BP 101/66
--- NOTE | 2018-10-10 12:51 | Pulmonology Progress Note ---
Assessment/Plan Assessment/Plan IMPRESSION: 1. Left hip fracture. S/p ORIF 2. Homelessness. 3. Probable underlying psych disorder versus dementia. DISCUSSION: Continue DVT prophylaxis. 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 Beka Lundberg M.D. Subjective Interval Events: no new events; labs reviewed Constitutional: Reports: no symptoms HEENT: Repors: no symptoms Respiratory: Reports: no symptoms Cardiovascular: Reports: no symptoms Gastrointestinal/Abdominal: Reports: no symptoms Genitourinary: Reports: no symptoms Allergies: Coded Allergies: No Known Allergies (Unverified , 10/07/18) Objective Last 24 Hour Vital Signs Date Time Temp Pulse Resp B/P (MAP) Pulse Ox O2 Delivery O2 Flow Rate FiO2 10/10/18 10:20 100.8 10/10/18 09:00 Room Air 10/10/18 08:00 100.8 100 24 119/71 (87) 94 10/10/18 04:00 99.1 103 24 118/73 (88) 95 10/10/18 00:00 98.7 114 20 109/72 (84) 92 10/09/18 21:00 Room Air 10/09/18 20:00 99.0 116 20 121/75 (90) 92 10/09/18 16:00 98.1 111 20 124/79 (94) 97 Intake and Output 10/09/18 10/10/18 18:59 06:59 Intake Total 240 ml 280 ml Output Total 225 ml Balance 15 ml 280 ml Intake Oral 240 ml 280 ml Output Urine Total 225 ml # Voids 1 2 # Bowel Movements 1 General Appearance: no acute distress HEENT: normocephalic Respiratory/Chest: chest wall non-tender, lungs clear Cardiovascular: normal peripheral pulses, normal rate Abdomen: normal bowel sounds Microbiology Date/Time Source Procedure Growth Status 10/08/18 00:55 Nasal Nares MRSA Culture - Final NO METHICILLIN RESISTANT STAPH AUREUS... Complete 10/08/18 00:55 Rectum - Final NO CARBAPENEM-RESISTANT ENTEROBACTERI... Complete 10/08/18 00:55 Rectum VRE Culture - Final NO VANCOMYCIN RESISTANT ENTEROCOCCUS ... Complete Laboratory Tests 10/10/18 06:49: White Blood Count 9.0, Red Blood Count 2.74L, Hemoglobin 9.6L, Hematocrit 28.2L , Mean Corpuscular Volume 103H, Mean Corpuscular Hemoglobin 35.2H, Mean Corpuscular Hemoglobin Concent 34.1, Red Cell Distribution Width 11.3L, Platelet Count 151, Mean Platelet Volume 7.0, Neutrophils (%) (Auto) 76.9H, Lymphocytes (%) (Auto) 11.6L, Monocytes (%) (Auto) 10.6H, Eosinophils (%) (Auto ) 0.1, Basophils (%) (Auto) 0.8, Sodium Level 135L, Potassium Level 3.7, Chloride Level 99, Carbon Dioxide Level 24, Anion Gap 12, Blood Urea Nitrogen 12 , Creatinine 0.8, Estimat Glomerular Filtration Rate , Glucose Level 123H, Calcium Level 8.7 Current Medications Medications (Trade) Dose Ordered Sig/Noel Route PRN Reason Start Time Stop Time Status Last Admin Dose Admin Acetaminophen/ Hydrocodone Bitart ([place] 5/325) 2 tab Q6H PRN ORAL Severe Pain (Pain Scale 7-10) 10/08/18 19:45 10/15/18 19:44 10/10/18 09:50 Bisacodyl (Dulcolax) 10 mg Q12H PRN RECTAL Constipation 10/08/18 19:45 11/07/18 19:44 Docusate Sodium (Colace) 100 mg THREE TIMES A DAY ORAL 10/09/18 09:00 11/08/18 08:59 10/10/18 12:05 Enoxaparin Sodium (Lovenox) 40 mg DAILY SUBQ 10/09/18 09:00 10/19/18 08:59 10/10/18 08:31 Hydromorphone HCl (Dilaudid) 2 mg Q3H PRN SUBQ breakthrough pain 10/08/18 20:00 10/15/18 19:44 Morphine Sulfate (Morphine Sulfate) 4 mg Q3H PRN IVP Severe Pain (Pain Scale 7-10) 10/08/18 19:45 10/15/18 19:44 Beka Lundberg MD Oct 10, 2018 12:51
--- NOTE | 2018-10-10 13:13 | NUR ---
CASE MANAGEMENT:REVIEW 10/10/18 SI: POD #2 S/P LT HIP SHORT NAILING 100.8 100 24 119/71 94% ON RA H/H-9.6/28.2 IS: LOVENOX SQ QD COLACE PO TID DILAUDID SQ Q3HRS PRN : MED/SURG STATUS 3 EAST PLAN:: WEIGHT BEARING TOLERATED
--- NOTE | 2018-10-10 13:14 | NUR ---
DISCHARGE PLANNING UNABLE TO REFER TO SNF SINCE PATIENT IS NON FUNDED MESSAGE LEFT FOR DR CASTELLON
[2018-10-10 16:00] VITALS: BP 110/69
--- NOTE | 2018-10-10 19:19 | NUR ---
HAND-OFF: Report given to ARIC Beyer. Pt stable, sitting in chair, boyfriend at bedside.
--- NOTE | 2018-10-10 19:30 | NUR ---
NURSE NOTES: Received report & pt from Monica Barfield RN. Pt lying in bed, a&ox2, in room air. No s/s of acute distrss & no c/o pain. Surgical dressing C/D/I. IV site intact & S/L'd. Bed in lowest position, call light within reach. Will continue to monitor.
[2018-10-10 20:00] VITALS: BP 111/66
[2018-10-11] VITALS: BP 104/74
[2018-10-11 04:00] VITALS: BP 117/70
--- NOTE | 2018-10-11 07:30 | NUR ---
HAND-OFF: Report given to MARIYA Reddy.
--- NOTE | 2018-10-11 07:45 | NUR ---
NURSE NOTES: patient received verbally responsive in bed, awake, talkative, no complaints of pain, no apparent distress noted, instructed to use IS and drsg on left hip is dry and intact. bed in lowest position, call light within reach.
[2018-10-11 08:00] VITALS: BP 113/79
[2018-10-11] MEDS: Docusate 100mg cap ORAL SCH ×3 (08:43→17:13)
[2018-10-11] MEDS: Enoxaparin 40mg Inj SUBQ SCH (08:44)
[2018-10-11] MEDS: HYDROcodone/Acetamin 5/325 tab ORAL PRN ×2 (09:17→21:56)
--- NOTE | 2018-10-11 10:00 | Nephrology Progress Note ---
Assessment/Plan Assessment/Plan A/P 1) Hip Fx- left intertrochanteric hip fracture. S/P ORIF - awaiting placement 2) Homless- SW to address 3) DVT prophylaxis with Heparin Subjective Date patient seen: Oct 11, 2018 Time patient seen: 09:57 ROS Limited/Unobtainable: Yes Allergies: Coded Allergies: No Known Allergies (Unverified , 10/07/18) Subjective Patient pleasant. Had ORIF Objective Last 24 Hour Vital Signs Date Time Temp Pulse Resp B/P (MAP) Pulse Ox O2 Delivery O2 Flow Rate FiO2 10/11/18 08:00 98.7 112 17 113/79 (90) 98 10/11/18 04:00 98.1 104 20 117/70 (86) 91 10/11/18 00:00 98.0 102 18 104/74 (84) 91 10/10/18 21:00 Room Air 10/10/18 20:00 97.3 104 18 111/66 (81) 96 10/10/18 17:51 98.4 10/10/18 16:00 98.4 76 18 110/69 (83) 96 10/10/18 12:00 98.0 100 19 101/66 (78) 95 Intake and Output 10/10/18 10/11/18 19:00 07:00 Intake Total 600 ml Balance 600 ml Intake Oral 600 ml # Voids 4 1 Height (Feet): 5 Height (Inches): 3.00 Weight (Pounds): 119 General Appearance: no apparent distress, alert Neck: normal alignment, supple Cardiovascular: normal rate, regular rhythm Respiratory/Chest: lungs clear, normal breath sounds Abdomen: non tender, soft Edema: no edema noted Arm (L), no edema noted Arm (R), no edema noted Leg (L), no edema noted Leg (R), no edema noted Pedal (L), no edema noted Pedal (R), no edema noted Generalized Corky Reed MD Oct 11, 2018 10:00
[2018-10-11] MEDS: Thiamine 100mg tab ORAL SCH (11:00)
[2018-10-11 12:06] VITALS: BP 105/62
--- NOTE | 2018-10-11 14:33 | NUR ---
Social Service Note JAY spoke with patient's brother Frederick [phone] who is assisting with furnishing an apartment he obtained for patient and his brother Ovidio to go to upon discharge. Brother is planning to have a bed in the apartment by Sunday. At this time patient only walking 10 feet with assistance. JAY arranged for Ovidio to meet with PT on Sunday at 1330 to obtain caregiver training. PT notified. Ovidio is meeting with [facility] to complete application for [facility]. Will continue to monitor and assist.
[2018-10-11 16:00] VITALS: BP 123/69
--- NOTE | 2018-10-11 19:15 | NUR ---
HAND-OFF: Report given to Kayleen.
--- NOTE | 2018-10-11 19:24 | NUR ---
CASE MANAGEMENT:REVIEW 10/11/18 SI: POD #3 S/P LT HIP SHORT NAILING T 98 HR 96 RR 18 B/P 123/69 SATS 98% ON RA NO LABS TODAY IS: LOVENOX SQ QD COLACE PO TID DILAUDID SQ Q3HRS PRN : MED/SURG STATUS 3 [facility] PLAN:: WEIGHT BEARING TOLERATED
--- NOTE | 2018-10-11 19:30 | NUR ---
NURSE NOTES: Received report & pt from MARIYA Reddy. Pt lying in bed, a&ox2, in room air. No s/s of acute distress & no c/o pain. Surgical dressing C/D/I. IV site intact & S/L'd. Bed in lowest position, call light within reach. Will continue to monitor.
[2018-10-11 20:00] VITALS: BP 124/78
[2018-10-12] VITALS: BP 113/68
[2018-10-12] MEDS: Morphine Sulfate 4mg/ml Inj (IV USE ONLY) IVP PRN (02:57)
[2018-10-12 04:00] VITALS: BP 107/60
--- NOTE | 2018-10-12 07:05 | NUR ---
HAND-OFF: Report given to ARIC Resendiz. Pt in stable condition.
[2018-10-12 08:00] VITALS: BP 131/77
--- NOTE | 2018-10-12 08:00 | NUR ---
NURSE NOTES: PATIENT IN BED, NO SIGNS OF RESPIRATORY DISTRESS. PATIENT IN ROOM AIR. IV INTACT. BED IN LOWEST POSITION, CALL LIGHT WITHIN REACH. WILL CONTINUE MONITOR.
[2018-10-12] MEDS: Docusate 100mg cap ORAL SCH ×3 (09:32→17:16)
[2018-10-12] MEDS: Enoxaparin 40mg Inj SUBQ SCH (09:33)
[2018-10-12] MEDS: Thiamine 100mg tab ORAL SCH (09:33)
--- NOTE | 2018-10-12 10:51 | Pulmonology Progress Note ---
Assessment/Plan Assessment/Plan IMPRESSION: 1. Left hip fracture. S/p ORIF 2. Homelessness. 3. Probable underlying psych disorder versus dementia. DISCUSSION: Continue DVT prophylaxis. 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 Beka Lundberg M.D. Subjective Interval Events: None new Constitutional: Reports: no symptoms HEENT: Repors: no symptoms Respiratory: Reports: no symptoms Cardiovascular: Reports: no symptoms Gastrointestinal/Abdominal: Reports: no symptoms Genitourinary: Reports: no symptoms Allergies: Coded Allergies: No Known Allergies (Unverified , 10/07/18) Objective Last 24 Hour Vital Signs Date Time Temp Pulse Resp B/P (MAP) Pulse Ox O2 Delivery O2 Flow Rate FiO2 10/12/18 09:00 Room Air 10/12/18 08:00 98.2 110 20 131/77 (95) 100 10/12/18 04:00 97.8 97 18 107/60 (76) 95 10/12/18 00:00 97.1 91 17 113/68 (83) 96 10/11/18 21:00 Room Air 10/11/18 20:00 98.9 90 18 124/78 (93) 95 10/11/18 16:00 98.0 96 18 123/69 (87) 98 10/11/18 12:06 98.1 94 18 105/62 (76) 96 Intake and Output 10/11/18 10/12/18 19:00 07:00 Intake Total 500 ml 300 ml Balance 500 ml 300 ml Intake Oral 500 ml 300 ml # Voids 2 # Bowel Movements 1 General Appearance: no acute distress HEENT: normocephalic Respiratory/Chest: chest wall non-tender, lungs clear Cardiovascular: normal peripheral pulses, normal rate Abdomen: normal bowel sounds Current Medications Medications (Trade) Dose Ordered Sig/Noel Route PRN Reason Start Time Stop Time Status Last Admin Dose Admin Acetaminophen/ Hydrocodone Bitart ([place] 5/325) 2 tab Q6H PRN ORAL Severe Pain (Pain Scale 7-10) 10/08/18 19:45 10/15/18 19:44 10/11/18 21:56 Bisacodyl (Dulcolax) 10 mg Q12H PRN RECTAL Constipation 10/08/18 19:45 11/07/18 19:44 Docusate Sodium (Colace) 100 mg THREE TIMES A DAY ORAL 10/09/18 09:00 11/08/18 08:59 10/12/18 09:32 Enoxaparin Sodium (Lovenox) 40 mg DAILY SUBQ 10/09/18 09:00 10/19/18 08:59 10/12/18 09:33 Folic Acid (Folate) 1 mg DAILY ORAL 10/11/18 10:00 11/10/18 09:59 10/12/18 09:33 Hydromorphone HCl (Dilaudid) 2 mg Q3H PRN SUBQ breakthrough pain 10/08/18 20:00 10/15/18 19:44 Morphine Sulfate (Morphine Sulfate) 4 mg Q3H PRN IVP Severe Pain (Pain Scale 7-10) 10/08/18 19:45 10/15/18 19:44 10/12/18 02:57 Thiamine HCl (Vitamin B1) 100 mg DAILY ORAL 10/11/18 10:00 11/10/18 09:59 10/12/18 09:33 Beka Lundberg MD Oct 12, 2018 10:51
[2018-10-12] MEDS ORDERED: LOVENOX10 M4 SUBQ (10:52)
[2018-10-12] MEDS ORDERED: NORCO 5-325 TA1 EACH ORAL (10:52)
--- NOTE | 2018-10-12 11:02 | NUR ---
NURSE NOTES: PATIENT SITTING UP IN CHAIR WITH ASSISTANCE BY PHYSICAL THERAPY. WILL CONTINUE TO MONITOR.
--- NOTE | 2018-10-12 11:16 | NUR ---
NURSE NOTES: NOTIFIED DR. CASTELLON THAT PATIENT'S BOYFRIEND'S BROTHER WILL HAVE APARTMENT FOR THEM READY ON SUNDAY, 10/14. DR. CASTELLON ENTERED DC ORDER AND STATED PATIENT CAN BE DISCHARGED WHEN APARTMENT READY. RX LEFT IN CHART. ENTERED ORDER FOR TEACHING ON SUBQ LOVENOX.
[2018-10-12 12:00] VITALS: BP 115/68
[2018-10-12] MEDS: HYDROcodone/Acetamin 5/325 tab ORAL PRN (14:46)
--- NOTE | 2018-10-12 15:20 | NUR ---
NURSE NOTES: PATIENT VERY AGITATED, RESTLESS AND COMBATIVE. KEEPS SLIDING DOWN BED, STATING SHE IS WANTS TO LEAVE, "I HAVE TO GO RIGHT NOW". WITH PHYSICAL THERAPY, PATIENT AMBULATED IN ROOM AND TO BATHROOM BUT REMAINS UNSTEADY, REQUIRING 1 ASSIST AND REMINDING HOW TO AMBULATE SAFELY WITH WALKER GIVEN SURGERY SHE HAD. CALLED MD REGARDING PRN MEDICATION. WILL AWAIT CALL BACK.
[2018-10-12 16:00] VITALS: BP 126/80
[2018-10-12] MEDS: ALPRAZolam 0.25mg tab ORAL PRN (17:16)
--- NOTE | 2018-10-12 19:05 | NUR ---
HAND-OFF: Report given to Marcy Johnson LVN. Patient stable, resting in bed. Bed alarm on.
--- NOTE | 2018-10-12 19:05 | NUR ---
NURSE NOTES: Patient received from Astrid Da Silva Patient c/o left hip pain . pain rates 7 out of 10 . patient pain controlled by pain medications .and reassess with good relief . RFA g#24 H/L Patent and intact call light within reach . bed in low position at all times . will continue to monitor. Addendum: 10/12/18 at 2357 by NAN HOLGUIN LVN Patient left hip Surgical dressing C/D/I will continue to Monitor.
[2018-10-12 20:00] VITALS: BP 113/71
[2018-10-13] VITALS (7 sets, daily range): BP systolic 124–140; BP diastolic 64–88
[2018-10-13] MEDS: HYDROcodone/Acetamin 5/325 tab ORAL PRN ×3 (00:04→15:00)
--- NOTE | 2018-10-13 07:15 | NUR ---
NURSE NOTES: PATIENT IN BED, NO SIGNS OF RESPIRATORY DISTRESS. TALKATIVE. SIGNIFICANT OTHER @ BEDSIDE. ROOM AIR. IV ACCESS PATENT AND INTACT. BED IN LOWEST POSITION, CALL LIGHT WITHIN REACH. WILL CONTINUE MONITOR.
--- NOTE | 2018-10-13 07:30 | NUR ---
HAND-OFF: Report given to LYN Cardoza
[2018-10-13] MEDS: Docusate 100mg cap ORAL SCH ×3 (08:41→17:05)
[2018-10-13] MEDS: Thiamine 100mg tab ORAL SCH (08:41)
[2018-10-13] MEDS: Enoxaparin 40mg Inj SUBQ SCH (08:43)
--- NOTE | 2018-10-13 10:23 | Pulmonology Progress Note ---
Assessment/Plan Assessment/Plan IMPRESSION: 1. Left hip fracture. S/p ORIF 2. Homelessness. 3. Probable underlying psych disorder versus dementia. DISCUSSION: Continue DVT prophylaxis. 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 Beka Lundberg M.D. Subjective Interval Events: No new events Constitutional: Reports: no symptoms HEENT: Repors: no symptoms Respiratory: Reports: no symptoms Cardiovascular: Reports: no symptoms Gastrointestinal/Abdominal: Reports: no symptoms Genitourinary: Reports: no symptoms Allergies: Coded Allergies: No Known Allergies (Unverified , 10/07/18) Objective Last 24 Hour Vital Signs Date Time Temp Pulse Resp B/P (MAP) Pulse Ox O2 Delivery O2 Flow Rate FiO2 10/13/18 09:43 Room Air 10/13/18 08:00 97.7 73 18 138/88 (105) 92 10/13/18 07:12 97.2 10/13/18 04:00 97.2 105 19 140/88 (105) 96 10/13/18 00:01 97.2 108 19 128/71 (90) 96 10/12/18 21:00 Room Air 10/12/18 20:15 97.9 10/12/18 20:00 97.3 99 18 113/71 (85) 95 10/12/18 16:00 97.9 110 19 126/80 (95) 100 10/12/18 12:00 98.2 106 19 115/68 (84) 95 Intake and Output 10/12/18 10/13/18 19:00 07:00 Intake Total 360 ml 880 ml Output Total 300 ml Balance 360 ml 580 ml Intake Oral 360 ml 880 ml Output Urine Total 300 ml # Voids 2 3 General Appearance: no acute distress HEENT: normocephalic Respiratory/Chest: chest wall non-tender, lungs clear Cardiovascular: normal peripheral pulses, normal rate Current Medications Medications (Trade) Dose Ordered Sig/Noel Route PRN Reason Start Time Stop Time Status Last Admin Dose Admin Acetaminophen/ Hydrocodone Bitart ([place] 5/325) 2 tab Q6H PRN ORAL Severe Pain (Pain Scale 7-10) 10/08/18 19:45 10/15/18 19:44 10/13/18 06:42 Alprazolam (Xanax) 0.25 mg Q8H PRN ORAL For Anxiety 10/12/18 17:15 10/19/18 17:14 10/12/18 17:16 Bisacodyl (Dulcolax) 10 mg Q12H PRN RECTAL Constipation 10/08/18 19:45 11/07/18 19:44 Docusate Sodium (Colace) 100 mg THREE TIMES A DAY ORAL 10/09/18 09:00 11/08/18 08:59 10/13/18 08:41 Enoxaparin Sodium (Lovenox) 40 mg DAILY SUBQ 10/09/18 09:00 10/19/18 08:59 10/13/18 08:43 Folic Acid (Folate) 1 mg DAILY ORAL 10/11/18 10:00 11/10/18 09:59 10/13/18 08:41 Hydromorphone HCl (Dilaudid) 2 mg Q3H PRN SUBQ breakthrough pain 10/08/18 20:00 10/15/18 19:44 10/12/18 19:45 Morphine Sulfate (Morphine Sulfate) 4 mg Q3H PRN IVP Severe Pain (Pain Scale 7-10) 10/08/18 19:45 10/15/18 19:44 10/12/18 02:57 Thiamine HCl (Vitamin B1) 100 mg DAILY ORAL 10/11/18 10:00 11/10/18 09:59 10/13/18 08:41 Beka Lundberg MD Oct 13, 2018 10:23
--- NOTE | 2018-10-13 15:40 | NUR ---
CASE MANAGEMENT:REVIEW 10/13/2018 SI: POD #5 S/P LT HIP SHORT NAILING T 98.2 HR 72 RR 19 B/P 124/64 SATS 94% ON RA NO LABS TODAY IS: LOVENOX SQ QD COLACE PO TID DILAUDID SUBQ Q3HRS PRN : MED/SURG STATUS 3 EAST PLAN:: WEIGHT BEARING TOLERATED
[2018-10-13] MEDS: ALPRAZolam 0.25mg tab ORAL PRN (17:04)
--- NOTE | 2018-10-13 17:16 | NUR ---
NURSE NOTES: PATIENT ABLE TO GO ON A BSC WITH ASSIST. SEEN BY PT TODAY. MEDICATED WITH [facility]CO FOR PAIN PER MD ORDER. TOLERATING FOOD INTAKE WELL. IS BEEN UTILIZED. SURGICAL DRSG DRY AND INTACT. BABINSKI REFLEX PRESENT. NO ACUTE RESP DISTRESS NOTED. WILL CONT TO MONITOR.
--- NOTE | 2018-10-13 19:23 | NUR ---
HAND-OFF: Report given to Doris.
--- NOTE | 2018-10-13 19:33 | NUR ---
NURSE NOTES: Received patient awake, able to verbalize needs, no c/o of of pain at this time, no s/s of acute distress. Bed on lowest position, 2 siderails up, bedside commode right of bed. IV pulled out by patient, will attempt to put new one in.
[2018-10-13] MEDS: Morphine Sulfate 4mg/ml Inj (IV USE ONLY) IVP PRN (20:18)
[2018-10-14] VITALS: BP 105/68
[2018-10-14 04:00] VITALS: BP 120/66
--- NOTE | 2018-10-14 07:14 | NUR ---
HAND-OFF: Report given to
--- NOTE | 2018-10-14 07:44 | Pulmonology Progress Note ---
Assessment/Plan Assessment/Plan IMPRESSION: 1. Left hip fracture. S/p ORIF 2. Homelessness. 3. Probable underlying psych disorder versus dementia. DISCUSSION: Continue DVT prophylaxis. labs reviewed continue PT DC planning to home with PT; anticipate dc today I will follow as senior director marketing. Beka Lundberg M.D. Subjective Interval Events: None new Constitutional: Reports: no symptoms HEENT: Repors: no symptoms Respiratory: Reports: no symptoms Cardiovascular: Reports: no symptoms Gastrointestinal/Abdominal: Reports: no symptoms Genitourinary: Reports: no symptoms Allergies: Coded Allergies: No Known Allergies (Unverified , 10/07/18) Objective Last 24 Hour Vital Signs Date Time Temp Pulse Resp B/P (MAP) Pulse Ox O2 Delivery O2 Flow Rate FiO2 10/14/18 04:00 98.7 101 20 120/66 (84) 98 10/14/18 00:00 98.4 110 20 105/68 (80) 98 10/13/18 21:54 Room Air 10/13/18 20:00 97.9 100 20 130/72 (91) 98 10/13/18 15:52 98.2 92 17 127/86 (100) 100 10/13/18 15:30 98.2 10/13/18 12:00 98.2 72 19 124/64 (84) 94 10/13/18 09:43 Room Air 10/13/18 08:00 97.7 73 18 138/88 (105) 92 Intake and Output 10/13/18 10/14/18 19:00 07:00 Intake Total 240 ml Balance 240 ml Intake Oral 240 ml # Voids 1 2 # Bowel Movements 2 General Appearance: no acute distress HEENT: normocephalic Respiratory/Chest: chest wall non-tender, lungs clear Cardiovascular: normal peripheral pulses Abdomen: normal bowel sounds Current Medications Medications (Trade) Dose Ordered Sig/Noel Route PRN Reason Start Time Stop Time Status Last Admin Dose Admin Acetaminophen/ Hydrocodone Bitart ([place] 5/325) 2 tab Q6H PRN ORAL Severe Pain (Pain Scale 7-10) 10/08/18 19:45 10/15/18 19:44 10/13/18 15:00 Alprazolam (Xanax) 0.25 mg Q8H PRN ORAL For Anxiety 10/12/18 17:15 10/19/18 17:14 10/13/18 17:04 Bisacodyl (Dulcolax) 10 mg Q12H PRN RECTAL Constipation 10/08/18 19:45 11/07/18 19:44 Docusate Sodium (Colace) 100 mg THREE TIMES A DAY ORAL 10/09/18 09:00 11/08/18 08:59 10/13/18 17:05 Enoxaparin Sodium (Lovenox) 40 mg DAILY SUBQ 10/09/18 09:00 10/19/18 08:59 10/13/18 08:43 Folic Acid (Folate) 1 mg DAILY ORAL 10/11/18 10:00 11/10/18 09:59 10/13/18 08:41 Hydromorphone HCl (Dilaudid) 2 mg Q3H PRN SUBQ breakthrough pain 10/08/18 20:00 10/15/18 19:44 10/13/18 23:13 Morphine Sulfate (Morphine Sulfate) 4 mg Q3H PRN IVP Severe Pain (Pain Scale 7-10) 10/08/18 19:45 10/15/18 19:44 10/13/18 20:18 Thiamine HCl (Vitamin B1) 100 mg DAILY ORAL 10/11/18 10:00 11/10/18 09:59 10/13/18 08:41 Beka Lundberg MD Oct 14, 2018 07:44
[2018-10-14 08:00] VITALS: BP 134/71
[2018-10-14] MEDS: Docusate 100mg cap ORAL SCH ×3 (08:07→17:56)
[2018-10-14] MEDS: Thiamine 100mg tab ORAL SCH (08:07)
[2018-10-14] MEDS: Enoxaparin 40mg Inj SUBQ SCH (08:08)
--- NOTE | 2018-10-14 09:21 | NUR ---
RECEIVED PATIENT IN BED AWAKE. NO RESPIRATORY DISTRESS OR SOB,. PATIENT DENIES NO PAIN OR DISCOMFORT..BOYFRIEND AT BEDSIDE. NO ACUTE DISTRESS INFORMED TO USE CALL LIGHT WHEN GETTING UP DUE TO FALL RISK CALL LIGHT IN REACH
[2018-10-14 12:00] VITALS: BP 123/87
--- NOTE | 2018-10-14 12:22 | NUR ---
CASE MANAGEMENT:REVIEW 10/14/2018 SI: POD #6 S/P LT HIP SHORT NAILING 98.5 92 18 134/71 98% on ra IS: XANAX PO Q8HRS PRN THIAMINE PO QD FOLATE PO QD LOVENOX SQ QD IV MORPHINE Q3HRS PRN NORCO PO Q6HRS PRN : MED/SURG STATUS 3 EAST
--- NOTE | 2018-10-14 13:07 | NUR ---
CALLED AND FAXED [facility] REGARDING PATIENT PRESCRIPTIONS COST $280.00 PATIENT IS HOMELESS. CALLED TRIP MOTOR OPERATOR AND SPECIAL TECHNICAL OPERATIONS OFFICER BECKA REGARDING PRESCRIPTIONS COST AWAITING SCALE MECHANIC BACK FROM S/WORKER PRIOR TO DISCHARGE..
[2018-10-14] MEDS ORDERED: Enoxaparin 40mg Inj SUBQ SCH ×2 (15:04)
--- NOTE | 2018-10-14 15:08 | NUR ---
RD ASSESSMENT & RECOMMENDATIONS SEE CARE ACTIVITY FOR COMPLETE ASSESSMENT DAILY ESTIMATED NEEDS: Needs based on Surgery 54kg 25-35 kcals/kg 0519-3493 total kcals 1-2 g protein/kg 54-108 g total protein 25-30 mL/kg 6290-8051 total fluid mLs NUTRITION DIAGNOSIS: Increased kcal and pro needs r/t surgical wound healing as evidenced by s/p L hip Orif CURRENT DIET: Regular PO DIET RECOMMENDATIONS: maintain Regular diet as tolerated ADDITIONAL RECOMMENDATIONS: 1) Obtain a standing weight as able 2) Add BARI BID for surgical wound healing 3) Check A1C
--- NOTE | 2018-10-14 15:11 | NUR ---
Social Service Note Patient being discharged to [address] [place] [address]. [place] [address]. JAY confirmed with patient's brother Frederick apartment was furnished this weekend. JAY discussed with Frederick prescriptions left for discharge. Patient in un-insured. Prescriptions faxed to [facility]. JAY spoke with Pharmacy [phone], and total cost of prescriptions are $320. JAY spoke with Frederick and due to paying for apartment and furniture he is not able to pay for prescriptions. [facility] is not able to filled narcotics, a 3 days supply of Lovenox will be provided to patient. [facility] is the closest [facility] to patient's address. Due to patient not being insured a follow up appointment can not be arranged. Patient will need to be seen in urgent care and screen for eligible services. FWW provided upon discharge. CM arranging for ambulance transport home. JAY discussed with Frederick and patient's boyfriend Ovidio. APS report completed [phone] file#[id number] Addendum: 10/14/18 at 1545 by BECKA BUCK Clarification: due to patient not being insured and has not been seen at [facility] a follow up cannot be arranged by JAY at this time. [phone]
--- NOTE | 2018-10-14 15:16 | NUR ---
DISCHARGE PLAN PATIENT WILL DISCHARGE TO HOME [address] [place] [place] [address] *INSTRUCTED BY SAMPLE BUILDER TO [facility] AMBUL[facility] TRANSPORT TO HOME [facility] HAS BEEN PLACED ON "WILL CALL" WAITING FOR PRESCRIPTIONS TO BE FILLED Addendum: 10/14/18 at 1603 by CATHY OLIVAS LVN LVN PATIENT'S BROTHER, JARRED, SHOULD BE CONTACTED JUST PRIOR TO LEAVING
[2018-10-14 16:00] VITALS: BP 138/75
--- NOTE | 2018-10-14 18:29 | NUR ---
removed hep lock and dressed gave all medication x 3 Lovenox and alcohol pads demonstrated on how to administer .. prescription and front wheel walker, .. awaiting on ambulance for [facility] 7:15 noted
--- NOTE | 2018-10-14 18:46 | NUR ---
INFORMED PATIENT TO FOLLOW UP CLINIC AND OUTSIDE SOURCES.... IF ANY MEDICAL EMERGENCY CALL 911 NO ACUTE DISTRESS
[2018-10-14 19:30] VITALS: BP 127/77
--- NOTE | 2018-10-14 19:34 | NUR ---
NURSE NOTES:Patient to be discharge home today . call [facility] and call back stated " [facility] staff 15 minutes away ". notified patient and boyfriend [facility] 15 minutes away . patient refused to be transported through [facility] .stated patient personal belongings checked with patient and boyfriend . left hip dressing C/D/I . Patient vss. afebrile . Patient discharge home with boyfriend at19:50 pm in stable conditions. Addendum: 10/15/18 at 0233 by NAN HOLGUIN LVN @1900: Per Anamika MERAZ, all D/C papers & instructions were given to pt & endorsed to f/u with [facility] only
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
== END 2018-10-14 19:50 | disposition home or self-care (01) | DRG 482 ==
LOC: EDBD 21:13 → EMR 21:43 → 3E 23:20 → EDBEDREQ 23:35
PROC: 0QH736Z Insertion of Intramedullary Internal Fixation Device into Left Upper Femur, Percutaneous Approach (ICD-10-PCS; principal; 2018-10-08 17:00)
DX: S72.142A Displaced intertrochanteric fracture of left femur, initial encounter for closed fracture (principal); W18.09XA Striking against other object with subsequent fall, initial encounter; Y92.480 Sidewalk as the place of occurrence of the external cause; Z59.0 Homelessness; F99 Mental disorder, not otherwise specified; F03.90 Unspecified dementia, unspecified severity, without behavioral disturbance, psychotic disturbance, mood disturbance, and anxiety
CPT/HCPCS: 36415; 71045; 72131; 72170; 73502; 74176; 76000; 80048; 80053; 80329; 81003; 82550; 82553; 83690; 84484; 85025; 85610; 85730; 87081; 93005; 94003; 94150; 96374; 96375; 99285; J2405; J2765

== ENCOUNTER 2019-03-22 23:16 | Emergency (ER) | payer MEDICAID, MEDICARE ==
[~2019-03-22] VITALS: Ht 154.9 cm; Wt 40.8 kg
[~2019-03-22 23:16] MED LIST: LOVENOX10 M4 SUBQ; NKM; NORCO 5-325 TA1 EACH ORAL
--- NOTE | 2019-03-22 23:25 | NUR ---
ED Nurse Note: pt brought in by boyfriend by wheelchair, c/c left eye redness and left side neck and headache, per pt's boyfriend report, pt has hx dementia and was gone for 1 month and found in [place], when the boyfriend found pt pt had scar on left eye and started complaining of headache. pt's boyfriend reports [facility] no [facility]. pt denies pain on left eye nor discharge. denies changes in vision. will cont monitor.
[2019-03-22 23:40] VITALS: BP 117/75
[2019-03-23] MEDS ORDERED: Methocarbamol 750mg tab ORAL ONE (00:30)
--- NOTE | 2019-03-23 00:36 | Emergency Room Report ---
History of Present Illness General Chief Complaint: Pain Source: Patient, Significant Other Present Illness HPI Disclaimer: Please note that this report is being documented using LibratoneON technology. This can lead to erroneous entry secondary to incorrect interpretation by the dictating instrument. HPI: 82-year-old female with history of dementia reportedly taking no medications presents for evaluation of left eye irritation as well as left- sided neck pain and headache. Patient states symptoms have been present for some time but cannot fully quantify. States that she was seen at [facility] for similar condition over the past few days however no interventions were performed. She is notes redness of the left eye without significant pain, denies changes in vision, denies pain with extraocular movements, denies eye trauma. Does not wear contact lenses. She is also complaining of left-sided neck and shoulder pain which is causing a headache on the left side. She denies any injury to the neck or back or shoulder. Denies any weakness in the upper extremities, changes in sensation, difficulty ambulating or other symptoms. She has not taken any medications. History was also obtained from the patient's boyfriend who corroborates this story. PMH: Dementia PSH: Denies Allergies: Denies Social Hx: Denies alcohol or drug abuse Allergies: Coded Allergies: No Known Allergies (Unverified , 10/07/18) Nursing Documentation-PMH Past Medical History: No History, Except For Review of Systems All Other Systems: negative except mentioned in HPI Physical Exam Vital Signs Date Time Temp Pulse Resp B/P (MAP) Pulse Ox O2 Delivery O2 Flow Rate FiO2 03/22/19 23:23 97.5 70 18 117/75 (89) 99 Room Air General: Awake and alert, no acute distress HEENT: NC/AT. EOMI. PERRLA. Mild conjunctival injection in the left eye. No drainage, no lacrimation. No obvious deformity. No periorbital swelling or ecchymosis. Cardiovascular: RRR. S1 and S2 normal. No murmur appreciated Resp: Normal work of breathing. No cough, wheezing or crackles appreciated MSK: Normal tone and bulk. Moving all extremities. No obvious deformity. Neuro: Awake and alert. Mentating appropriately. Somewhat of a poor historian though pleasant and cooperative. Back/Spine: No midline tenderness in the cervical, thoracic or lumbosacral spine. There is moderate paraspinal tenderness over the left side of the cervical and upper thoracic region with significant tenderness over the trapezius particularly over the insertion of the skull. Medical Decision Making Diagnostic Impression: Primary Impression: Eye irritation Additional Impression: Back spasm ER Course 82-year-old female presents for evaluation of left eye irritation without vision changes and left-sided neck pain causing headache. The patient is describing symptoms of a back spasm which is causing tension leading to headache. Will treat with NSAIDs and Robaxin. The patient's eye irritation does not show obvious signs of infection and may be allergic or due to repeated rubbing as the patient has been doing throughout the entire exam. Will start on few days of prednisolone and artificial tears. These bottles were provided to the patient in the emergency department. She is also prescribed NSAIDs and Robaxin. We discussed reasons to return to the emergency department with patient and her boyfriend. They understand and agree with treatment plan and will be discharged home. Last Vital Signs Date Time Temp Pulse Resp B/P (MAP) Pulse Ox O2 Delivery O2 Flow Rate FiO2 03/22/19 23:23 97.5 70 18 117/75 (89) 99 Room Air Disposition: HOME, SELF-CARE Condition: Stable Scripts Methocarbamol* (ROBAXIN-750*) 750 Mg Tablet 750 MG PO TID, #21 TAB 0 Refills Prov: David Salvador MD 03/23/19 Ibuprofen* (MOTRIN*) 600 Mg Tablet 600 MG ORAL Q6HR PRN for For Pain, #30 TAB 0 Refills Prov: David Salvador MD 03/23/19 David Salvador MD Mar 23, 2019 00:36
[2019-03-23] MEDS ORDERED: Pred Forte 1% Opth Susp 1ml LEFT EYE ONE (00:45)
[2019-03-23] MEDS ORDERED: IBUPROFEN600 MG ORAL (00:52)
[2019-03-23] MEDS ORDERED: ROBAXIN-750750 MG PO (00:52)
--- NOTE | 2019-03-23 00:59 | NUR ---
Boyfriend JASPREET - [phone] brother [phone]
[2019-03-23 01:20] VITALS: BP 119/70
--- NOTE | 2019-03-23 01:20 | NUR ---
ED Nurse Note: pt cleared to be d/c per ERMD, pt discharge and aftercare instruction provided w/ prescription, pt education done via discussion and handout, pt advised to follow up with pcp or return to ed if changes in condition, vss, left w/ all belongings, pt accompanied by boyfriend.
== END 2019-03-23 01:20 | disposition home or self-care (01) ==
LOC: EMR 23:58
DX: H57.12 Ocular pain, left eye (principal); M62.830 Muscle spasm of back; F03.90 Unspecified dementia, unspecified severity, without behavioral disturbance, psychotic disturbance, mood disturbance, and anxiety; R51 Headache; M54.2 Cervicalgia
CPT/HCPCS: 99282

== ENCOUNTER 2019-05-21 20:17 | Inpatient (IN) | payer MEDICARE, MEDICAID ==
[~2019-05-21] VITALS: Ht 162.6 cm; Wt 50.8 kg
[~2019-05-21 20:17] MED LIST changes: +IBUPROFEN600 MG ORAL; +ROBAXIN-750750 MG PO
[2019-05-21] MEDS ORDERED: Thiamine 100mg tab ORAL ONE (20:45)
--- NOTE | 2019-05-21 20:47 | Emergency Room Report ---
History of Present Illness General Chief Complaint: Altered Mental Status Source: Patient Present Illness HPI 82-year-old female, denies any complaints at this moment, collateral history was obtained by significant other who left without contact info, information obtained from triage nurse, patient was drinking in the morning, is currently altered from her baseline, however she does have baseline dementia, patient denies any complaints, unknown alleviating factors aggravating factors may be alcohol severity is mild, constant she denies any weakness, she states she is fine. Allergies: Coded Allergies: No Known Allergies (Unverified , 10/07/18) Patient History Past Medical History: see triage record Social History: Reports: alcohol use Reviewed Nursing Documentation: PMH: Agreed; PSxH: Agreed Nursing Documentation-PMH Past Medical History: No History, Except For Review of Systems All Other Systems: negative except mentioned in HPI Physical Exam Vital Signs Date Time Temp Pulse Resp B/P (MAP) Pulse Ox O2 Delivery O2 Flow Rate FiO2 05/21/19 20:23 97.7 84 15 119/72 (88) 95 Room Air Sp02 EP Interpretation: reviewed, normal General Appearance: well appearing, no apparent distress, alert Head: normocephalic, atraumatic Eyes: bilateral eye PERRL, bilateral eye EOMI ENT: uvula midline, moist mucus membranes Neck: supple, thyroid normal, supple/symm/no masses Respiratory: lungs clear, no respiratory distress, no retraction, no accessory muscle use Cardiovascular #1: normal peripheral pulses, regular rate, rhythm, no edema, no gallop, no murmur Gastrointestinal: non tender, soft, no guarding, no rebound Musculoskeletal: normal inspection Neurologic: alert, oriented x3 Psychiatric: mood/affect normal Skin: no rash, warm/dry Procedures Critical Care Time Critical Care Time Given the critical condition in which the patient arrived, the patient was immediately assessed by myself and the nurse, and cardiac monitoring initiated due to the potential for rapid decompensation of the patient's clinical condition. During the course of the patient's stay, I spent a considerable amount of time at the bedside performing serial re-evaluations of the patient's hemodynamic and clinical status because of the recognized potential threat to life or limb in this condition. I then had a chance to review not only all of the available current laboratory and radiographic studies obtained today, but I also reviewed old records available to me at the time. Additionally, any ancillary information available including drop hammer setter up records were reviewed. Sequential vital signs were obtained. Critical Care time of 34 minutes was performed exclusive of billable procedures. Medical Decision Making Diagnostic Impression: Primary Impression: Altered mental status Qualified Codes: R41.82 - Altered mental status, unspecified Additional Impressions: Hypokalemia Hypomagnesemia Stroke Qualified Codes: I63.9 - Cerebral infarction, unspecified ER Course 82-year-old female presents with altered mental status concerning for stroke versus electrolyte abnormality versus intoxication Patient found to have severe hypokalemia, severe hypomagnesia, patient instantly also found to have a stroke greater than 24 hours out of the window, no acute indications for TPA Patient was repleted with 120 mg of potassium, 4 g of magnesium Patient will be admitted to the stepdown unit Patient admitted to Dr. Wong Laboratory Tests Test 05/21/19 21:20 05/21/19 21:30 05/21/19 21:37 05/21/19 22:00 White Blood Count 5.5 K/UL (4.8-10.8) Red Blood Count 4.17 M/UL (4.20-5.40) L Hemoglobin 15.8 G/DL (12.0-16.0) Hematocrit 41.2 % (37.0-47.0) Mean Corpuscular Volume 99 FL (80-99) Mean Corpuscular Hemoglobin 37.9 PG (27.0-31.0) H Mean Corpuscular Hemoglobin Concent 38.3 G/DL (32.0-36.0) H Red Cell Distribution Width 11.4 % (11.6-14.8) L Platelet Count 231 K/UL (150-450) Mean Platelet Volume 6.0 FL (6.5-10.1) L Neutrophils (%) (Auto) 63.4 % (45.0-75.0) Lymphocytes (%) (Auto) 20.8 % (20.0-45.0) Monocytes (%) (Auto) 14.3 % (1.0-10.0) H Eosinophils (%) (Auto) 0.4 % (0.0-3.0) Basophils (%) (Auto) 1.1 % (0.0-2.0) Prothrombin Time 9.8 SEC (9.30-11.50) Prothrombin Time INR 0.9 (0.9-1.1) PTT 25 SEC (23-33) Lactic Acid Level 1.10 mmol/L (0.4-2.0) Urine Color Pale yellow Urine Appearance Slightly cloudy Urine pH 8 (4.5-8.0) Urine Specific [place] 1.010 (1.005-1.035) Urine Protein 2+ (NEGATIVE) H Urine Glucose (UA) Negative (NEGATIVE) Urine Ketones 1+ (NEGATIVE) H Urine Blood 2+ (NEGATIVE) H Urine Nitrite Positive (NEGATIVE) H Urine Bilirubin Negative (NEGATIVE) Urine Urobilinogen 4 MG/DL (0.0-1.0) H Urine Leukocyte Esterase 2+ (NEGATIVE) H Urine RBC 2-4 /HPF (0 - 2) H Urine WBC 10-15 /HPF (0 - 2) H Urine Squamous Epithelial Cells Few /LPF (NONE/OCC) Urine Bacteria Many /HPF (NONE) H Urine Opiates Screen Negative (NEGATIVE) Urine Barbiturates Screen Negative (NEGATIVE) Phencyclidine (PCP) Screen Negative (NEGATIVE) Urine Amphetamines Screen Negative (NEGATIVE) Urine Benzodiazepines Screen Negative (NEGATIVE) Urine Cocaine Screen Negative (NEGATIVE) Urine Marijuana (THC) Screen Negative (NEGATIVE) Sodium Level 147 MMOL/L (136-145) H Potassium Level 1.3 MMOL/L (3.5-5.1) *L Chloride Level 116 MMOL/L (98-107) H Carbon Dioxide Level 19 MMOL/L (21-32) L Anion Gap 12 mmol/L (5-15) Blood Urea Nitrogen 7 mg/dL (7-18) Creatinine 0.3 MG/DL (0.55-1.30) L Estimate Glomerular Filtration Rate mL/min (>60) Glucose Level 62 MG/DL (74-106) L Calcium Level 4.8 MG/DL (8.5-10.1) *L Phosphorus Level 1.3 MG/DL (2.5-4.9) L Magnesium Level 0.8 MG/DL (1.8-2.4) *L Total Bilirubin 0.5 MG/DL (0.2-1.0) Aspartate Amino Transferase (AST) 45 U/L (15-37) H Alanine Aminotransferase (ALT) 31 U/L (12-78) Alkaline Phosphatase 45 U/L (46-116) L Total Creatine Kinase 57 U/L (26-308) Creatine Kinase MB 1.1 NG/ML (0.0-3.6) Creatine Kinase MB Relative Index 1.9 Troponin I 0.016 ng/mL (0.000-0.056) Pro-B-Type Natriuretic Peptide 233 pg/mL (0-125) H Total Protein 3.6 G/DL (6.4-8.2) L Albumin 1.6 G/DL (3.4-5.0) L Globulin 2.0 g/dL Albumin/Globulin Ratio 0.8 (1.0-2.7) L Lipase 34 U/L (73-393) L Salicylates Level 0.2 ug/mL (2.8-20) L Serum Alcohol < 3 mg/dL Test 05/21/19 23:14 Sodium Level 138 MMOL/L (136-145) Potassium Level 2.5 MMOL/L (3.5-5.1) #*L Chloride Level 101 MMOL/L (98-107) Carbon Dioxide Level 30 MMOL/L (21-32) Anion Gap 7 mmol/L (5-15) Blood Urea Nitrogen 12 mg/dL (7-18) Creatinine 0.7 MG/DL (0.55-1.30) # Estimate Glomerular Filtration Rate mL/min (>60) Glucose Level 120 MG/DL (74-106) H Calcium Level 8.6 MG/DL (8.5-10.1) # Total Bilirubin 1.0 MG/DL (0.2-1.0) Aspartate Amino Transferase (AST) 81 U/L (15-37) H Alanine Aminotransferase (ALT) 56 U/L (12-78) Alkaline Phosphatase 85 U/L (46-116) Total Protein 6.6 G/DL (6.4-8.2) # Albumin 3.1 G/DL (3.4-5.0) L Globulin 3.5 g/dL Albumin/Globulin Ratio 0.9 (1.0-2.7) L EKG Diagnostic Results EKG Time: 21:08 EP Interpretation: NSR, rate 85, QTc 476, no acute ST elevations, normal axis Rhythm Strip Diag. Results Rhythm Strip Time: 23:46 EP Interpretation: yes Rate: 84 Rhythm: NSR, no PVC's, no ectopy Chest X-Ray Diagnostic Results Chest X-Ray Diagnostic Results : Chest X-Ray Ordered: Yes # of Views/Limited/Complete: 1 View Indication: Other - AMS EP Interpretation: Yes Interpretation: no consolidation, no effusion, no pneumothorax, no acute cardiopulmonary disease Impression: No acute disease Electronically Signed by: Ron Wheeler MD CT/MRI/US Diagnostic Results CT/MRI/US Diagnostic Results : Impression Preliminary Findings Only See Final Report For Complete Findings ADDENDUM - Added by Sergio Peter MD on 05/21/2019 9:21 PM (-07:00) LATE acute versus subacute infarct in left occipital lobe superiorly, measuring approximately 3.1 x 2.4 cm, and similar appearing smaller infarct in left occipital pole inferiorly. CT HEAD Without Contrast: Limits acute versus subacute infarct in left occipital lobe superiorly, measuring approximately 3.1 x 2.4 cm, and similar appearing smaller infarct in left occipital pole inferiorly. No hemorrhagic transformation. Effacement of overlying sulci. No herniation. White matter hypodensities, most likely representing small vessel ischemic change. Global cerebral volume loss. Radiologist: Sergio Peter MD Study ready at 21:05 and initial results transmitted at 21:16 Clear Time Type Notes 05/21/19 21:20 Call Doctor Regarding Stroke, called Bubba KAY on 05/21 21:20 (-07 :00) Last Vital Signs Date Time Temp Pulse Resp B/P (MAP) Pulse Ox O2 Delivery O2 Flow Rate FiO2 05/21/19 20:23 97.7 84 15 119/72 (88) 95 Room Air Disposition: ADMITTED INPATIENT Condition: Serious Ron Wheeler MD May 21, 2019 20:47
--- NOTE | 2019-05-21 21:17 | Diagnostic Imaging Report ---
Indication: Altered mental status Technique: Contiguous 5 mm thick transaxial imaging of the head obtained in a Siemens Sensation [address] scanner. Soft tissue and bone windows generated. Automatic Exposure Control was utilized. Total Dose length Product (DLP): [address] Dose Index Volume (CTDIvol): 60 mGy Comparison: none Findings: There is a 3 to 4 cm focus of low attenuation in the left occipital lobe consistent with edema and suspicious for an acute to subacute CVA. There is no hemorrhage. There is no definite mass effect or midline shift. There is moderate prominence of the ventricles, basal cisterns, and cerebral sulci consistent with atrophy. Moderate, nonspecific, white matter hypoattenuation is noted throughout the brain consistent with chronic small vessel disease. Impression: Suspected nonhemorrhagic CVA left occipital region. Moderate atrophy of the brain. Evidence of chronic small vessel disease involving white matter tracts. Critical value communication. Findings were discussed via telephone with Dr. Wheeler at 05/21/2019 at 21:[address] Peter from [facility]. [facility] has communicated the preliminary results to the Emergency Department. Their findings are largely concordant with this report. The CT scanner at [facility] is accredited by the [employer] and the scans are performed using dose optimization techniques as appropriate to a performed exam including Automatic Exposure control.
[2019-05-21 21:37] LABS: BASOPHILS % (AUTO) 1.1 % (0.0-2.0); EOSINOPHILS % (AUTO) 0.4 % (0.0-3.0); HEMATOCRIT 41.2 % (37.0-47.0); HEMOGLOBIN 15.8 G/DL (12.0-16.0); LYMPHOCYTES % (AUTO) 20.8 % (20.0-45.0); MEAN CORPUSCULAR VOLUME 99 FL (80-99); MONOCYTES % (AUTO) 14.3 % (1.0-10.0); NEUTROPHILS % (AUTO) 63.4 % (45.0-75.0); PLATELET COUNT 231 K/UL (150-450); RED BLOOD COUNT 4.17 M/UL (4.20-5.40); RED CELL DISTRIBUTION WIDTH 11.4 % (11.6-14.8); WHITE BLOOD COUNT 5.5 K/UL (4.8-10.8)
[2019-05-21 21:47] LABS: INR 0.9 (0.9-1.1)
--- NOTE | 2019-05-21 22:10 | NUR ---
ED Nurse Note: Patient walked into ED with walker accompanied by boyfriend. C/O of AMS. Pt states she took illegal substance. Patient appears confused and disheviled. A/Ox2; IV established on RH 22G, patent and asymptomatic.
[2019-05-21 22:47] LABS: ALANINE AMINOTRANSFERASE 31 U/L (12-78); ALBUMIN 1.6 G/DL (3.4-5.0); ALBUMIN/GLOBULIN RATIO 0.8 (1.0-2.7); ALKALINE PHOSPHATASE 45 U/L (46-116); ANION GAP 12 mmol/L (5-15); ASPARTATE AMINO TRANSFERASE 45 U/L (15-37); BILIRUBIN,TOTAL 0.5 MG/DL (0.2-1.0); BLOOD UREA NITROGEN 7 mg/dL (7-18); CARBON DIOXIDE 19 MMOL/L (21-32); CHLORIDE 116 MMOL/L (98-107); CKMB 1.1 NG/ML (0.0-3.6); CREATINE KINASE 57 U/L (26-308); CREATININE 0.3 MG/DL (0.55-1.30); PHOSPHORUS 1.3 MG/DL (2.5-4.9); SODIUM 147 MMOL/L (136-145)
--- NOTE | 2019-05-21 22:48 | NUR ---
ED Nurse Note: Patient pulled out IV, new IV place on RFA 20G, IVF infusing well.
[2019-05-21 22:53] LABS: POTASSIUM 1.3 MMOL/L (3.5-5.1)
[2019-05-21 22:55] LABS: CALCIUM 4.8 MG/DL (8.5-10.1)
--- NOTE | 2019-05-21 23:14 | NUR ---
ED Nurse Note: Per WES Jimenez to infuse 4gm Magnesium sulfat ivpb at once running @200ml/hr.
[2019-05-21 23:38] LABS: ALANINE AMINOTRANSFERASE 56 U/L (12-78); ALBUMIN 3.1 G/DL (3.4-5.0); ALBUMIN/GLOBULIN RATIO 0.9 (1.0-2.7); ALKALINE PHOSPHATASE 85 U/L (46-116); ANION GAP 7 mmol/L (5-15); ASPARTATE AMINO TRANSFERASE 81 U/L (15-37); BLOOD UREA NITROGEN 12 mg/dL (7-18); CALCIUM 8.6 MG/DL (8.5-10.1); CARBON DIOXIDE 30 MMOL/L (21-32); CHLORIDE 101 MMOL/L (98-107); CREATININE 0.7 MG/DL (0.55-1.30); SODIUM 138 MMOL/L (136-145)
[2019-05-21 23:44] LABS: POTASSIUM 2.5 MMOL/L (3.5-5.1)
[2019-05-21 23:47] VITALS: BP 119/72
--- NOTE | 2019-05-21 23:49 | NUR ---
HAND-OFF: Report given to ARIC Guardado.
[2019-05-21 23:50] LABS: APPEARANCE,URINE SLIGHTLY CLOUDY; BILIRUBIN, URINE NEGATIVE (NEGATIVE); COLOR,URINE PALE YELLOW; GLUCOSE, URINE (UA) NEGATIVE (NEGATIVE); KETONES,URINE 1+ (NEGATIVE); NITRITE,URINE POSITIVE (NEGATIVE); PH,URINE 8 (4.5-8.0); PROTEIN,URINE 2+ (NEGATIVE); UROBILINOGEN,URINE 4 MG/DL (0.0-1.0)
--- NOTE | 2019-05-21 23:50 | NUR ---
ED Nurse Note: Report received from Cline RN. pt is bed yelling and screaming, confused. VSS on monitor
[2019-05-21 23:58] LABS: LEUKOCYTE ESTERASE ,URINE 2+ (NEGATIVE)
[2019-05-22] MEDS ORDERED: Haloperidol 5mg/ml Inj IM ONE
[2019-05-22] MEDS ORDERED: Haloperidol 5mg/ml Inj ONE
[2019-05-22] MEDS ORDERED: LORazepam Inj 2mg/ml 1ml IV ONE
[2019-05-22] MEDS ORDERED: DiphenhydrAMINE 50mg/ml Inj IVP ONE
--- NOTE | 2019-05-22 01:10 | NUR ---
ED Nurse Note: pt was brought up to SDU room 237 accompanied by deployment technician and RN in stable condition via gurney on monitor box. IV site to right AC intact. belonging list signed off. Report given to Susana Vergara
[2019-05-22 01:15] VITALS: BP 144/65
--- NOTE | 2019-05-22 01:15 | NUR ---
NURSE NOTES: Received report from ARIC Sanchez. Patient was brought up from ED to SDU. Admitting diagnosis CVA, hypokalemia and hypomagnesemia. Patient was given 4 mg of Magnesium IV, Haldol 10mg IM, Benadryl 50mg IV, K mEq IV and 120 mEq K PO and Ativan 2mg IV in emergency department. CT report showed no evidence of intracranial hemorrhage. Patient is sedated from medications given in ED. SR on tele and VS stable upon admission. R AC IV 20g patent and asymptomatic.Full body skin check performed scab noted on upper right back and superficial scratches noted on lower back, no pressure ulcers noted at this time. Safety and aspiration precautions maintained. Patients boyfrienthanh, Ovidio, is present at bedside and reports that she last drank vodka today. Admitted under Dr Wong, Will obtain orders. Will continue to monitor. Addendum: 05/22/19 at 0405 by ROYAL GRADY RN NURSE NOTES: Received report from ARIC Sanchez. Patient was brought up from ED to SDU. Admitting diagnosis ALOC r/o CVA, hypokalemia and hypomagnesemia. Patient was given 4 mg of Magnesium IV, Haldol 10mg IM, Benadryl 50mg IV, K 10 mEq IV and 120 mEq K PO and Ativan 2mg IV in emergency department. CT report showed no evidence of intracranial hemorrhage. Patient is sedated from medications given in ED. SR on tele and VS stable upon admission. R AC IV 20g patent and asymptomatic.Full body skin check performed scab noted on upper right back and superficial scratches noted on lower back, no pressure ulcers noted at this time. Safety and aspiration precautions maintained. Patients boyfriend, Ovidio, is present at bedside and reports that she last drank vodka today. Admitted under Dr Wong, Will obtain orders. Will continue to monitor.
--- NOTE | 2019-05-22 02:15 | NUR ---
NURSE NOTES: Called Dr Wong for orders Per Dr Wong NPO and tele admit. Dr Wong to call at 0600 with additional orders; no other orders given. Orders carried out.
--- NOTE | 2019-05-22 03:45 | NUR ---
NURSE NOTES: Received patient from ARIC Vergara. Patient asleep in bed, no signs of distress or pain noted. Patient's IV site checked, intact and patent, no signs of infiltration, bleeding, or erythema. Patient's belongings list checked at bedside with RN. Patient's boyfriend at bedside. Bed in lowest position, brakes on, side rails up x3, bed alarm on, and call light within reach. Will continue with plan of care.
--- NOTE | 2019-05-22 03:45 | NUR ---
HAND-OFF: Report given to Devorah RN, pt. transferred to room 212-2- pt. remains stable and no signs of distress noted. Belongings checked at bedside with nurse. Boyfriend remains at bed side with patient.
[2019-05-22 04:00] VITALS: BP 108/62
--- NOTE | 2019-05-22 06:30 | NUR ---
NURSE NOTES: Dr. Wong called with admission orders. Noted and carried out.
--- NOTE | 2019-05-22 07:05 | NUR ---
HAND-OFF: Report given to ARIC Davis. Plan of care of endorsed.
--- NOTE | 2019-05-22 07:10 | NUR ---
NURSE NOTES: Report received from ARIC Fairchild. Pt sleeping comfortably. No breathing difficulty noted. Friend at bedside. Bed on lowest position, side rails upx2, brakes engaged, alarm on. Call light within easy reach.
[2019-05-22 08:00] VITALS: BP 111/63
[2019-05-22] MEDS: Miralax 17gm pkt ORAL SCH ×2 (09:25→18:16)
[2019-05-22 09:32] LABS: BASOPHILS % (AUTO) 0.9 % (0.0-2.0); EOSINOPHILS % (AUTO) 0.8 % (0.0-3.0); HEMATOCRIT 38.4 % (37.0-47.0); LYMPHOCYTES % (AUTO) 20.6 % (20.0-45.0); MEAN CORPUSCULAR VOLUME 103 FL (80-99); MONOCYTES % (AUTO) 12.3 % (1.0-10.0); NEUTROPHILS % (AUTO) 65.4 % (45.0-75.0); PLATELET COUNT 211 K/UL (150-450); RED BLOOD COUNT 3.75 M/UL (4.20-5.40); RED CELL DISTRIBUTION WIDTH 12.5 % (11.6-14.8); WHITE BLOOD COUNT 5.7 K/UL (4.8-10.8)
[2019-05-22 09:48] LABS: ALANINE AMINOTRANSFERASE 57 U/L (12-78); ALBUMIN 2.8 G/DL (3.4-5.0); ALBUMIN/GLOBULIN RATIO 0.8 (1.0-2.7); ALKALINE PHOSPHATASE 83 U/L (46-116); ANION GAP 11 mmol/L (5-15); ASPARTATE AMINO TRANSFERASE 101 U/L (15-37); BLOOD UREA NITROGEN 10 mg/dL (7-18); CALCIUM 8.6 MG/DL (8.5-10.1); CARBON DIOXIDE 29 MMOL/L (21-32); CHLORIDE 105 MMOL/L (98-107); CHOLESTEROL 137 MG/DL (< 200); CREATININE 0.7 MG/DL (0.55-1.30); HDL CHOLESTEROL 69 MG/DL (40-60); SODIUM 144 MMOL/L (136-145); TRIGLYCERIDES 77 MG/DL (30-150)
[2019-05-22 09:49] LABS: POTASSIUM 2.1 MMOL/L (3.5-5.1)
--- NOTE | 2019-05-22 11:23 | Diagnostic Imaging Report ---
Indication: Dyspnea Comparison: 10/07/2018 A single view chest radiograph was obtained. Findings: No definite infiltrate or pulmonary vascular congestion identified. The heart is borderline enlarged. The aorta is mildly enlarged consistent with atherosclerotic vascular disease. The bones are osteopenic. Impression: No acute disease
[2019-05-22] MEDS ORDERED: Sodium Chloride for KCL Premix X 4hrs IV SCH (11:30)
--- NOTE | 2019-05-22 11:33 | NUR ---
REFERRED FOR SWALLOW EVAL BY DR RODRIGUEZ, SEE FULL REPORT. DYSPHAGIA RISK FACTORS FOR THIS 82 Y.O.F.: ACUTE ISSUES: LATE ACUTE VERSUS SUBACUTE LEFT SUPERIOR OCCIPITAL LOBE CVA WITH SMALLER LEFT INFERIOR OCCIPITAL INFARCT. MODERATE BRAIN ATROPHY (H/O DEMENTIA) PER FAMILY, HAD PRIOR CVA. H/O DEMENTIA, CVA A COUPLE YEARS AGO), ETOH AND SUBSTANCE ABUSE, PSYCH TREATMENT (STOPPED TAKING HALDOL AT HOME). NO POLST NOR AD REGARDING TUBE FEEDINGS IF NEEDS ? DIET AT HOME BUT NOW ON SOFT CHEW DIET AND THIN LIQUIDS (NONE GIVEN TO DATE) ALERT WITH MAX CUES BUT TENDS TO KEEP HER EYES CLOSED AND IS NOT VERBALIZING. INITIAL IMPRESSION: S/S OF AT LEAST A MODERATE OROPHARYNGEAL DYSPHAGIA WITH HIGH RISK FOR SILENT ASPIRATION (NEW AND OLD CVAS). GIVEN THIN LIQUIDS VIA CUP, HAS OVERT S/S OF ASPIRATION AND LEFT ORAL SPILLAGE. GIVEN NECTAR THICK LIQUIDS VIA TSP/CUP, MILD INCREASE IN OP TRANSIT TIMES AND FAIR HYOLARYNGEAL EXCURSION DURING SWALLOW WITH NO ORAL RESIDUE AND NO OVERT ASPIRATION. GIVEN PUREED TSP, CHEWS FOR 10 SECONDS (HAS TONGUE THRUST) AND SWALLOWS WITH MILD ORAL TONGUE RESIDUE, CLEARS WITH 2ND SWALLOW, NO OVERT ASP RECOMMENDATIONS: COMPLETE MOD BARIUM SWALLOW STUDY PRIOR TO PO INTAKE IF POSSIBLE TO FURTHER ASSESS SWALLOW, DETERMINE SILENT ASPIRATION RISK AND ATTEMPT TRIAL TX TECHNIQUES IF PO GIVEN FOR QUALITY OF LIFE PURPOSES, CONSIDER DOWNGRADING TO LIQUIFIED PUREED LIKE NECTAR THICK SOUP CONSISTENCY TSP ONLY WITH POSTED ASPIRATION PRECAUTIONS AND ONE TO ONE FEEDING. DIET TYPE PER RD WHEN EVALUATION COMPLETED SKILLED DYSPHAGIA MANAGEMENT AND TX AND COG-COM EVAL/TX EDUCATED AND TRAINED STAFF IN POSTED PRECAUTIONS.
[2019-05-22 12:00] VITALS: BP 135/79
--- NOTE | 2019-05-22 12:54 | NUR ---
CASE MANAGEMENT: INITIAL REVIEW 82 YR OLD FEMALE FROM HOME CC: SI:AMS; STROKE; 97.7 84 15 119/72 95% ON RA K+1.3; CA 4.8; MG 0.8; LIPASE 34, C02 19; SENIOR SOFTWARE PROJECT MANAGER IS: IVF NS X1 THIAMINE PO X1 FOLATE PO X1 K-DUR PO X1 IV MG SULFATE X4 BAGS IV KCL X1 : 2E TELE UNIT DCP: RETURN HOME WHEN MEDICALLY CLEAR CASE MANAGEMENT: REVIEW 05/22/19 SI:AMS; STROKE; 97.7 84 15 119/72 95% ON RA K+2.1 IS: IVF NS@100HR X1 IV KCL @100HR X4 BAGS MIRALAX PO BID TYLENOL PO Q4/PRN : 2E TELE UNIT DCP: RETURN HOME WHEN MEDICALLY CLEAR Addendum: 05/22/19 at 1334 by ROBINA TSE LVN CASE MANAGEMENT: INITIAL REVIEW 82 YR OLD FEMALE FROM HOME CC: SI:AMS; STROKE; HYPOKALEMIA; HYPOMAGNESEMIA 97.7 84 15 119/72 95% ON RA K+1.3; CA 4.8; MG 0.8; LIPASE 34, C02 19; SENIOR SOFTWARE PROJECT MANAGER IS: IVF NS X1 THIAMINE PO X1 FOLATE PO X1 K-DUR PO X1 IV MG SULFATE X4 BAGS IV KCL X1 : 2E TELE UNIT DCP: RETURN HOME WHEN MEDICALLY CLEAR
--- NOTE | 2019-05-22 14:23 | Diagnostic Imaging Report ---
APPROVED REPORT CPT Code: 04157 Present Symptoms Comments: Pain BILATERAL: Imaging reveals a patent deep venous system bilaterally. There is no evidence of thrombus within the common femoral, superficial femoral, popliteal or tibial segments. The greater saphenous veins are within normal limits. Doppler indicates normal spontaneous flow within these segments.
[2019-05-22] MEDS: Aspirin EC 81mg tab ORAL SCH (15:38)
[2019-05-22] MEDS: Thiamine 100mg in D5W 55ml IVPB SCH (15:39)
[2019-05-22] MEDS: MULTIVITAMIN IV SCH ×2 (15:46→23:09)
[2019-05-22] MEDS: [UNRECOGNIZED DRUG - OTHER] IV SCH ×2 (15:46→23:09)
[2019-05-22] MEDS: POTASSIUM PHOSPHATE IV SCH ×2 (15:46→23:09)
[2019-05-22 16:00] VITALS: BP 137/76
--- NOTE | 2019-05-22 16:02 | NUR ---
P.T Note: late entry 1340 P.T evaluation completed and tx initiated. Please refer to P.T evaluation for current functional status. Pt appeared lethargic, confused however follows simple one step commands. Pt. presented asymmetrical weakness on RUE/LE with decreased RUE coordination limited functional mobility performance and safety. Pt required MAX A and constant verbal and manual cues to complete bed mobility and transfer mobility task. Pt required MAX support to maintain upright standing due to retropulsion and excessive leaning towards the right side. Pt is too weak, lethargic and confused to ambulate at this time. Skilled P.T is warranted to improve strength, balance and coordination to increase mobility independence and safety. Recommend SNF for further rehab intervention [facility]
[2019-05-22] MEDS: cefTRIAXone 1 GM in D5W 50 ML IVPB SCH (17:20)
--- NOTE | 2019-05-22 19:30 | NUR ---
NURSE NOTES: Received pt and report from ARIC Davis. Observed pt asleep in bed with both eyes closed; arousable to voice and light shake. Pt is A/Ox1. exceptional children teacher assistant is in placed. Pt has no IV access at this time. Pt pulled out IVs which were found on pt's bed and now discarded in sharps container. Will put IV in pt shortly. Bed is in the lowest position and locked. Call light within reach. No signs/symptoms of acute distress noted at this time. Will continue plan of care.
--- NOTE | 2019-05-22 19:39 | NUR ---
NURSE NOTES: Both Left hand 22g and R hand 22g IVs found on the bed.
--- NOTE | 2019-05-22 19:40 | NUR ---
HAND-OFF: Report given to ARIC Wing. Plan of care endorsed.
[2019-05-22 20:00] VITALS: BP 153/95
[2019-05-22] MEDS: LORazepam Inj 2mg/ml 1ml IV PRN (21:22)
--- NOTE | 2019-05-22 21:45 | History and Physical Report ---
DATE OF ADMISSION: 05/21/2019 Apparently, she had a prior admission with a first name, . CHIEF COMPLAINT AND REASON FOR HOSPITALIZATION: The patient has hypokalemia and altered mental status. HISTORY OF PRESENT ILLNESS: The patient is unable to give a history. She came in with hypokalemia and generalized weakness. Apparently, the patient is a heavy alcohol user. After talking with the family member, Bar Montejo, he states she lives with his brother name, Ovidio, who does not have a telephone now and the patient has been a heavy alcohol user. I was able to check hospital records from October 07, 2018 as she was admitted for a ground level fall and a hip fracture. The records are reviewed. She had open reduction and internal fixation of hip fracture on the left at that time. She apparently was homeless at that time. She had uneventful recovery and there was a concern of psychiatric disorder versus dementia, but she was discharged home. MEDICATIONS: No regular medicines. ALLERGIES: None known. HABITS: She is a moderate heavy alcohol user. SYSTEM REVIEW: She is inarticulate and not able to give a good history. Note that, she has received some sedation from the emergency room. PHYSICAL EXAMINATION: GENERAL: The patient is lying in bed, alert, no acute distress. VITAL SIGNS: Temperature 98.8, pulse 71, respirations 20, blood pressure 111/63, and pulse ox 100. HEENT: Oral mucosa is slightly dry. Sclerae nonicteric. Ocular motions intact in all directions. There is mild concern for irritation in the right eye. NECK: No adenopathy. LUNGS: Clear. HEART: Regular rhythm. No murmur. ABDOMEN: Soft without organomegaly or masses. EXTREMITIES: No edema, cyanosis, or clubbing. No swollen joints. NEUROLOGIC: She is alert, dysarthric, confused, and disoriented. Ocular motions appear to be intact in all directions. Smile is symmetric. She moves all extremities. LABORATORY DATA: Review of laboratory show white count of 5.5 and hemoglobin of 15.8. Initial sodium 147, potassium 1.3, BUN 7, and creatinine 0.3. Calcium is 4.8. Phosphorus 1.3. Albumin 1.6. TSH 1.7. Urinalysis, 2+ protein and 10 to 15 white cells per high-power field. IMPRESSION: 1. Altered mental status possibly secondary to homeless status. 2. Dementia of the Alzheimer's type. Possible underlying schizophrenic affective or schizophrenia. 3. Severe hypokalemia. 4. Severe hypophosphatemia. 5. Alcoholism. 6. History of agitation requiring sedation. 7. History of hip fracture. 8. Pyuria, rule out urinary tract infection. PLAN: The patient will have electrolytes repleted. Treat her for alcohol withdrawal. Monitor closely in view of her confused status. Try to get director of social media marketing involved. Duc Wong M.D. DR: DANIEL JOB#: [id number] CC:
[2019-05-23] VITALS: BP 132/83
[2019-05-23 04:00] VITALS: BP 155/86
[2019-05-23] MEDS: POTASSIUM PHOSPHATE IV SCH ×3 (05:36→19:47)
[2019-05-23] MEDS: [UNRECOGNIZED DRUG - OTHER] IV SCH ×3 (05:36→19:47)
[2019-05-23] MEDS: MULTIVITAMIN IV SCH ×3 (05:36→19:47)
[2019-05-23 07:27] LABS: ALANINE AMINOTRANSFERASE 60 U/L (12-78); ALBUMIN 2.8 G/DL (3.4-5.0); ALBUMIN/GLOBULIN RATIO 0.8 (1.0-2.7); ALKALINE PHOSPHATASE 82 U/L (46-116); ANION GAP 10 mmol/L (5-15); ASPARTATE AMINO TRANSFERASE 89 U/L (15-37); BILIRUBIN,TOTAL 0.8 MG/DL (0.2-1.0); BLOOD UREA NITROGEN 5 mg/dL (7-18); CALCIUM 7.8 MG/DL (8.5-10.1); CARBON DIOXIDE 26 MMOL/L (21-32); CHLORIDE 108 MMOL/L (98-107); CREATININE 0.7 MG/DL (0.55-1.30); PHOSPHORUS 6.6 MG/DL (2.5-4.9); POTASSIUM 3.2 MMOL/L (3.5-5.1); SODIUM 144 MMOL/L (136-145)
[2019-05-23 07:29] LABS: BASOPHILS % (AUTO) 0.9 % (0.0-2.0); EOSINOPHILS % (AUTO) 1.6 % (0.0-3.0); HEMATOCRIT 37.2 % (37.0-47.0); HEMOGLOBIN 13.5 G/DL (12.0-16.0); LYMPHOCYTES % (AUTO) 33.2 % (20.0-45.0); MEAN CORPUSCULAR VOLUME 103 FL (80-99); MONOCYTES % (AUTO) 14.4 % (1.0-10.0); PLATELET COUNT 223 K/UL (150-450); RED BLOOD COUNT 3.61 M/UL (4.20-5.40); RED CELL DISTRIBUTION WIDTH 12.5 % (11.6-14.8); WHITE BLOOD COUNT 3.9 K/UL (4.8-10.8)
--- NOTE | 2019-05-23 07:36 | NUR ---
HAND-OFF: Report given to ARIC Sagastume. Plan of care endorsed.
--- NOTE | 2019-05-23 07:39 | NUR ---
NURSE NOTES: Nurse report given by ARIC Wing. Patient's sleeping but arousable to voice and light shake. Pt is AOx1, no s/s of distress or SOB. cashier courtesy booth is in placed, IV is intact, patent and running fluid, no s/s of infiltration or tenderness. Bed is in the lowest position and locked. Call light within reach, bed alarm is on. Will continue plan of care.
[2019-05-23 08:00] VITALS: BP 155/94
[2019-05-23] MEDS: Aspirin EC 81mg tab ORAL SCH (08:45)
[2019-05-23] MEDS: Miralax 17gm pkt ORAL SCH ×2 (08:45→17:44)
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
[2019-05-23 12:00] VITALS: BP 125/78
--- NOTE | 2019-05-23 12:29 | NUR ---
NURSE NOTES: Left message to Dr. Wong regarding about patient does not have any DVT prevention order. Awaiting for response.
--- NOTE | 2019-05-23 13:26 | NUR ---
CASE MANAGEMENT: REVIEW 05/23/19 SI:AMS; STROKE; HYPOKALEMIA; HYPOMAGNESEMIA 97.7 84 15 119/72 95% ON RA K+3.2; CA 7.8; PHOS 6.6; MG 0.8; LIPASE 34, C02 19; DATA CONTROL CLERK WBC 3.9; RBC 3.61 IS: IV BANANA BAG @150HR IV CEFTRIAXONE Q24HR IV THIAMINE Q24HR ASPIRIN PO QD : 2E TELE UNIT DCP: RETURN HOME WHEN MEDICALLY CLEAR Addendum: 05/23/19 at 1343 by ROBINA TSE LVN CASE MANAGEMENT: REVIEW 05/23/19 SI:AMS; STROKE; HYPOKALEMIA; HYPOMAGNESEMIA 97.7 84 15 119/72 95% ON RA K+3.2; CA 7.8; PHOS 6.6; MG 0.8; WBC 3.9; RBC 3.61 IS: IV BANANA BAG @150HR IV CEFTRIAXONE Q24HR IV THIAMINE Q24HR ASPIRIN PO QD : 2E TELE UNIT DCP: RETURN HOME WHEN MEDICALLY CLEAR
--- NOTE | 2019-05-23 13:42 | CDS Physician Query ---
Clarification is required for compliance, coding accuracy, and to reflect severity of illness for this patient Dear Dr. Duc Wong M.D. Date: 05/23/2019 In Tube Conversion Technician/CDS Name: Bar Gallagher CHIEF COMPLAINT AND REASON FOR HOSPITALIZATION: The patient has hypokalemia and altered mental status. HISTORY OF PRESENT ILLNESS: The patient is unable to give a history. She came in with hypokalemia and generalized weakness. Apparently, the patient is a heavy alcohol user. After talking with the family member, Bar Montejo, he states she lives with his brother name, Ovidio, who does not have a telephone now and the patient has been a heavy alcohol user. I was able to check hospital records from October 07, 2018 as she was admitted for a ground level fall and a hip fracture. The records are reviewed. She had open reduction and internal fixation of hip fracture on the left at that time. She apparently was homeless at that time. She had uneventful recovery and there was a concern of psychiatric disorder versus dementia, but she was discharged home. "Altered Mental Status" documented in H&P Please indicate the nature and chronicity of the condition below: [] Metabolic Encephalopathy [] Toxic Encephalopathy [] Toxic - Metabolic Encephalopathy [] Encephalopathy, Other [] Dementia with Delirium [] Hypoxic encephalopathy [] Posterior reversible encephalopathy syndrome [] Other: [] Not Applicable Present on Admission: [] Yes [] No [] Clinically Undetermined Physician signature Date Please also document in your Progress Notes and/or Discharge Summary and indicate if the condition was present on admission. MTDD
[2019-05-23] MEDS: Thiamine 100mg in D5W 55ml IVPB SCH (14:23)
--- NOTE | 2019-05-23 15:21 | Cardiology Report ---
APPROVED REPORT EKG Measurement Heart [id number] Normal sinus rhythm Cannot rule out Anterior infarct, age undetermined Abnormal ECG
[2019-05-23 16:00] VITALS: BP 147/95
[2019-05-23] MEDS: cefTRIAXone 1 GM in D5W 50 ML IVPB SCH (16:09)
--- NOTE | 2019-05-23 16:13 | General Progress Note ---
Assessment/Plan Problem List: (1) UTI (urinary tract infection) ICD Codes: N39.0 - Urinary tract infection, site not specified SNOMED: 23089775 (2) CVA (cerebral vascular accident) ICD Codes: I63.9 - Cerebral infarction, unspecified SNOMED: 110045384 (3) Altered mental status ICD Codes: R41.82 - Altered mental status, unspecified SNOMED: 877222981 Qualifiers: Qualified Codes: R41.82 - Altered mental status, unspecified (4) Hypokalemia ICD Codes: E87.6 - Hypokalemia SNOMED: 46716204 (5) Hypomagnesemia ICD Codes: E83.42 - Hypomagnesemia SNOMED: 574764651 (6) Stroke ICD Codes: I63.9 - Cerebral infarction, unspecified SNOMED: 657152771 Qualifiers: Qualified Codes: I63.9 - Cerebral infarction, unspecified (7) Hypophosphatemia ICD Codes: E83.39 - Other disorders of phosphorus metabolism SNOMED: 4942467 (8) AA (alcohol abuse) ICD Codes: F10.10 - Alcohol abuse, uncomplicated SNOMED: 87397468 Assessment/Plan: CT--Suspected nonhemorrhagic CVA left occipital region. ot pt st seeing. On rx for possible alcohol withdrawal. replacing lytes. rx possible uti Subjective Constitutional: Reports: weakness HEENT: Reports: no symptoms Cardiovascular: Reports: no symptoms Respiratory: Reports: no symptoms Gastrointestinal/Abdominal: Reports: no symptoms Genitourinary: Reports: no symptoms Neurologic/Psychiatric: Reports: weakness Endocrine: Reports: no symptoms Hematologic/Lymphatic: Reports: no symptoms Allergies: Coded Allergies: No Known Allergies (Unverified , 10/07/18) Objective Last 24 Hour Vital Signs Date Time Temp Pulse Resp B/P (MAP) Pulse Ox O2 Delivery O2 Flow Rate FiO2 05/23/19 12:00 97.9 73 18 125/78 (94) 96 05/23/19 11:00 70 05/23/19 08:00 Room Air 05/23/19 08:00 98.0 84 20 155/94 (114) 99 05/23/19 08:00 80 05/23/19 04:00 97.3 72 18 155/86 (109) 100 05/23/19 04:00 71 05/23/19 00:00 97.5 68 17 132/83 (99) 96 05/23/19 00:00 70 05/22/19 21:00 Room Air 05/22/19 20:00 98.2 75 17 153/95 (114) 96 05/22/19 20:00 77 Intake and Output 05/22/19 05/23/19 18:59 06:59 Intake Total 300 ml 1790 ml Balance 300 ml 1790 ml Intake Oral 140 ml IV Total 1650 ml Other 300 ml # Voids 2 # Bowel Movements 2 Laboratory Tests 05/23/19 06:15: White Blood Count 3.9L, Red Blood Count 3.61L, Hemoglobin 13.5, Hematocrit 37.2 , Mean Corpuscular Volume 103H, Mean Corpuscular Hemoglobin 37.5H, Mean Corpuscular Hemoglobin Concent 36.3H, Red Cell Distribution Width 12.5, Platelet Count 223, Mean Platelet Volume 5.9L, Neutrophils (%) (Auto) 50.0, Lymphocytes (%) (Auto) 33.2, Monocytes (%) (Auto) 14.4H, Eosinophils (%) (Auto) 1.6, Basophils (%) (Auto) 0.9, Sodium Level 144, Potassium Level 3.2#L, Chloride Level 108H, Carbon Dioxide Level 26, Anion Gap 10, Blood Urea Nitrogen 5L, Creatinine 0.7, Estimat Glomerular Filtration Rate , Glucose Level 76, Calcium Level 7.8L, Phosphorus Level 6.6H, Magnesium Level 1.8, Total Bilirubin 0.8, Aspartate Amino Transf (AST/SGOT) 89H, Alanine Aminotransferase (ALT/SGPT) 60, Alkaline Phosphatase 82, Total Protein 6.2L, Albumin 2.8L, Globulin 3.4, Albumin/Globulin Ratio 0.8L Height (Feet): 5 Height (Inches): 4.00 Weight (Pounds): 112 General Appearance: no apparent distress, alert EENT: normal ENT inspection Neck: non-tender, normal alignment Cardiovascular: normal rate, regular rhythm Respiratory/Chest: lungs clear Abdomen: non tender, soft Edema: no edema noted Arm (L), no edema noted Arm (R), no edema noted Leg (L), no edema noted Leg (R), no edema noted Pedal (L), no edema noted Pedal (R), no edema noted Generalized Neurologic: furniture technician II-XII grossly normal, other - dysarthric Duc Wong MD May 23, 2019 16:13
[2019-05-23] MEDS: Magnesium Oxide 400mg tab ORAL SCH (17:44)
[2019-05-23] MEDS ORDERED: NKM (18:28)
--- NOTE | 2019-05-23 19:49 | NUR ---
HAND-OFF: Report given to ARIC Chopra. Plan of care endorsed. Patient's stable.
[2019-05-23 20:00] VITALS: BP 155/99
--- NOTE | 2019-05-23 20:10 | NUR ---
NURSE NOTES RECEIVED PATIENT RESTING IN BED, CONFUSED. BOYFRIEND AT BEDSIDE. FALL AND ASPIRATION PRECAUTIONS IN PLACE: CALL LIGHT AND BEDSIDE TABLE WITHIN REACH, BED ALARM ON. WILL CONTINUE WITH PLAN OF CARE.
[2019-05-24] VITALS: BP 130/83
[2019-05-24] MEDS: LORazepam Inj 2mg/ml 1ml IV PRN (01:17)
[2019-05-24 04:00] VITALS: BP 135/69
[2019-05-24] MEDS: POTASSIUM PHOSPHATE IV SCH (04:50)
[2019-05-24] MEDS: [UNRECOGNIZED DRUG - OTHER] IV SCH (04:50)
[2019-05-24] MEDS: MULTIVITAMIN IV SCH (04:50)
[2019-05-24 06:59] LABS: BASOPHILS % (AUTO) 1.3 % (0.0-2.0); EOSINOPHILS % (AUTO) 1.5 % (0.0-3.0); HEMATOCRIT 39.3 % (37.0-47.0); HEMOGLOBIN 14.4 G/DL (12.0-16.0); LYMPHOCYTES % (AUTO) 29.4 % (20.0-45.0); MEAN CORPUSCULAR VOLUME 103 FL (80-99); MONOCYTES % (AUTO) 15.3 % (1.0-10.0); NEUTROPHILS % (AUTO) 52.6 % (45.0-75.0); PLATELET COUNT 218 K/UL (150-450); RED BLOOD COUNT 3.82 M/UL (4.20-5.40); RED CELL DISTRIBUTION WIDTH 12.3 % (11.6-14.8); WHITE BLOOD COUNT 4.4 K/UL (4.8-10.8)
--- NOTE | 2019-05-24 07:15 | NUR ---
NURSE NOTES: Received report from ARIC Chopra. Patient is sleeping but arousable to voice and light shake. Pt is AOx1, no s/s of distress or SOB. monitor car operator is in placed, IV is intact, patent and running fluid, no s/s of infiltration or tenderness. Patient is breathing even and unlabored on room air. Fall precaution in place: bed is in the lowest position and locked. Call light within reach, bed alarm is on. Will continue plan of care.
[2019-05-24 07:23] LABS: ANION GAP 10 mmol/L (5-15); BLOOD UREA NITROGEN 3 mg/dL (7-18); CALCIUM 8.8 MG/DL (8.5-10.1); CARBON DIOXIDE 25 MMOL/L (21-32); CHLORIDE 108 MMOL/L (98-107); CREATININE 0.6 MG/DL (0.55-1.30); POTASSIUM 4.2 MMOL/L (3.5-5.1); SODIUM 143 MMOL/L (136-145)
--- NOTE | 2019-05-24 07:26 | NUR ---
HAND-OFF: Report given to Deon PORTILLO RN. PATIENT ASLEEP, NO SIGNS OF DISTRESS NOTED.
[2019-05-24 08:00] VITALS: BP 139/95
[2019-05-24] MEDS: Magnesium Oxide 400mg tab ORAL SCH ×3 (08:58→17:18)
[2019-05-24] MEDS: Aspirin EC 81mg tab ORAL SCH (08:58)
[2019-05-24] MEDS: Miralax 17gm pkt ORAL SCH ×2 (08:58→17:18)
--- NOTE | 2019-05-24 09:47 | NUR ---
HAND-OFF: Report given to ARIC Bonner. Patient was transferred from [facility] 210-2 to 4 [facility] 220-1. Addendum: 05/24/19 at 0948 by Dane Love RN Belonging checklist went over and signed.
--- NOTE | 2019-05-24 10:00 | NUR ---
NURSE NOTES: patient transferred from Tele unit with fair condition. received report from ARIC Vela. patient alert.verbally responsive. forgetful and confused. no respiratory distress noted. no c/o pain at this time. IV on LFA 20 running fluid. fall risk. yellow socks, bed in the lowest position and locked. call light within reach. alarm on. clutter free environment. will continue to provide plan of care.
[2019-05-24 12:00] VITALS: BP 131/86
--- NOTE | 2019-05-24 12:30 | NUR ---
NURSE NOTES: Patient seen by Marvin Gibbons. no new order at this time. Patient need to be seated on chair by PT. notified PT on duty.
--- NOTE | 2019-05-24 12:50 | Cardiology Report ---
APPROVED REPORT EKG Measurement Heart [id number] TX [id number] Normal sinus rhythm Normal ECG
--- NOTE | 2019-05-24 13:42 | General Progress Note ---
Assessment/Plan Problem List: (1) UTI (urinary tract infection) ICD Codes: N39.0 - Urinary tract infection, site not specified SNOMED: 04734624 (2) CVA (cerebral vascular accident) ICD Codes: I63.9 - Cerebral infarction, unspecified SNOMED: 657505180 (3) Altered mental status ICD Codes: R41.82 - Altered mental status, unspecified SNOMED: 558779833 Qualifiers: Qualified Codes: R41.82 - Altered mental status, unspecified (4) Hypokalemia ICD Codes: E87.6 - Hypokalemia SNOMED: 70287131 (5) Hypomagnesemia ICD Codes: E83.42 - Hypomagnesemia SNOMED: 783121035 (6) Stroke ICD Codes: I63.9 - Cerebral infarction, unspecified SNOMED: 464687912 Qualifiers: Qualified Codes: I63.9 - Cerebral infarction, unspecified (7) Hypophosphatemia ICD Codes: E83.39 - Other disorders of phosphorus metabolism SNOMED: 9655609 (8) AA (alcohol abuse) ICD Codes: F10.10 - Alcohol abuse, uncomplicated SNOMED: 71987808 Assessment/Plan: CT--Suspected nonhemorrhagic CVA left occipital region. ot pt st seeing. On rx for possible alcohol withdrawal. replacing lytes. rx possible uti e coli give sxt, chane to po meds, needs ecf Subjective Constitutional: Reports: no symptoms HEENT: Reports: no symptoms Respiratory: Reports: no symptoms Gastrointestinal/Abdominal: Reports: no symptoms Genitourinary: Reports: no symptoms Neurologic/Psychiatric: Reports: weakness Endocrine: Reports: no symptoms Hematologic/Lymphatic: Reports: no symptoms Allergies: Coded Allergies: No Known Allergies (Unverified , 10/07/18) Objective Last 24 Hour Vital Signs Date Time Temp Pulse Resp B/P (MAP) Pulse Ox O2 Delivery O2 Flow Rate FiO2 05/24/19 12:00 97.6 91 18 131/86 (101) 98 05/24/19 09:00 Room Air 05/24/19 08:00 96.3 84 18 139/95 (110) 96 05/24/19 07:40 65 05/24/19 04:00 75 05/24/19 04:00 97.9 76 18 135/69 (91) 96 05/24/19 00:00 84 05/24/19 00:00 98.2 81 18 130/83 (99) 96 05/23/19 21:00 Room Air 05/23/19 20:00 86 05/23/19 20:00 97.8 85 20 155/99 (117) 99 05/23/19 16:00 97.5 77 20 147/95 (112) 98 05/23/19 16:00 78 Intake and Output 05/23/19 05/24/19 19:00 07:00 Intake Total 120 ml 1145 ml Balance 120 ml 1145 ml Intake Oral 120 ml 120 ml IV Total 1025 ml # Voids 3 3 # Bowel Movements 1 Laboratory Tests 05/24/19 06:37: White Blood Count 4.4L, Red Blood Count 3.82L, Hemoglobin 14.4, Hematocrit 39.3 , Mean Corpuscular Volume 103H, Mean Corpuscular Hemoglobin 37.8H, Mean Corpuscular Hemoglobin Concent 36.7H, Red Cell Distribution Width 12.3, Platelet Count 218, Mean Platelet Volume 6.1L, Neutrophils (%) (Auto) 52.6, Lymphocytes (%) (Auto) 29.4, Monocytes (%) (Auto) 15.3H, Eosinophils (%) (Auto) 1.5, Basophils (%) (Auto) 1.3, Sodium Level 143, Potassium Level 4.2, Chloride Level 108H, Carbon Dioxide Level 25, Anion Gap 10, Blood Urea Nitrogen 3L, Creatinine 0.6, Estimat Glomerular Filtration Rate , Glucose Level 94, Calcium Level 8.8, Phosphorus Level 5.0H, Magnesium Level 1.9 Height (Feet): 5 Height (Inches): 4.00 Weight (Pounds): 112 General Appearance: no apparent distress, alert, confused EENT: normal ENT inspection Neck: normal alignment, supple Cardiovascular: normal rate, regular rhythm Respiratory/Chest: lungs clear Abdomen: non tender Edema: no edema noted Arm (L), no edema noted Arm (R), no edema noted Leg (L), no edema noted Leg (R), no edema noted Pedal (L), no edema noted Pedal (R), no edema noted Generalized Neurologic: responsive, disoriented, other - mild dysarthria Duc Wong MD May 24, 2019 13:42
[2019-05-24] MEDS ORDERED: [UNRECOGNIZED DRUG - OTHER] IV SCH (14:50)
[2019-05-24] MEDS ORDERED: MULTIVITAMIN IV SCH (14:50)
[2019-05-24] MEDS ORDERED: POTASSIUM PHOSPHATE IV SCH (14:50)
[2019-05-24] MEDS ORDERED: Thiamine HCl 100 MG in D5W 55 ML IVPB SCH (15:00)
[2019-05-24 16:00] VITALS: BP 154/109
[2019-05-24] MEDS ORDERED: cefTRIAXone 1 GM in D5W 50 ML IVPB SCH (16:00)
[2019-05-24] MEDS ORDERED: NS 275ml ONE (16:23)
--- NOTE | 2019-05-24 17:19 | NUR ---
NURSE NOTES: RN held miralax at 1719 d/t patient had large BMx2 today.
--- NOTE | 2019-05-24 19:28 | NUR ---
HAND-OFF: Report given to ARIC Mena.
--- NOTE | 2019-05-24 19:45 | NUR ---
NURSE NOTES: Received report from Kailey CORBETT. Patient is awake, alert and appears agitated. Pt is AOx1, confused, forgetful, no s/s of distress or SOB. IV is intact, patent NS lock. no s/s of infiltration or tenderness. Patient is breathing even and unlabored on room air. Fall precautions in place: bed is in the lowest position and locked, side rails x3, bed alarm on at all times. Call light within reach, Will continue plan of care.
[2019-05-24 20:00] VITALS: BP 175/110
[2019-05-24] MEDS: Bactrim SS Tab ORAL SCH (21:00)
[2019-05-25] VITALS: BP 160/110
[2019-05-25] MEDS: LORazepam Inj 2mg/ml 1ml IV PRN ×2 (03:35→16:17)
[2019-05-25 04:06] VITALS: BP 114/79
--- NOTE | 2019-05-25 06:59 | NUR ---
HAND-OFF: Report given to ARIC Bonner.
--- NOTE | 2019-05-25 07:37 | NUR ---
NURSE NOTES: received report from ARIC Mena. patient in bed. alert. confused. verbally responsive. no respiratory distress noted. no facial grimacing. fall risk. yellow socks on. bed in the lowest position and locked. alarm on. call light within reach. IV on LFA 20 saline lock. intact. will continue to provide plan of care.
[2019-05-25 08:00] VITALS: BP 143/93
[2019-05-25 08:11] LABS: BASOPHILS % (AUTO) 0.7 % (0.0-2.0); HEMATOCRIT 43.1 % (37.0-47.0); HEMOGLOBIN 15.5 G/DL (12.0-16.0); LYMPHOCYTES % (AUTO) 23.2 % (20.0-45.0); MEAN CORPUSCULAR VOLUME 104 FL (80-99); MONOCYTES % (AUTO) 12.1 % (1.0-10.0); NEUTROPHILS % (AUTO) 63.1 % (45.0-75.0); PLATELET COUNT 272 K/UL (150-450); RED BLOOD COUNT 4.15 M/UL (4.20-5.40); RED CELL DISTRIBUTION WIDTH 12.3 % (11.6-14.8)
[2019-05-25 08:35] LABS: ANION GAP 4 mmol/L (5-15); BLOOD UREA NITROGEN 2 mg/dL (7-18); CALCIUM 9.3 MG/DL (8.5-10.1); CARBON DIOXIDE 29 MMOL/L (21-32); CHLORIDE 105 MMOL/L (98-107); CREATININE 0.7 MG/DL (0.55-1.30); PHOSPHORUS 3.4 MG/DL (2.5-4.9); POTASSIUM 4.9 MMOL/L (3.5-5.1); SODIUM 138 MMOL/L (136-145)
[2019-05-25] MEDS: Bactrim SS Tab ORAL SCH ×2 (08:37→21:38)
[2019-05-25] MEDS: Aspirin EC 81mg tab ORAL SCH (08:38)
[2019-05-25] MEDS: Magnesium Oxide 400mg tab ORAL SCH ×3 (08:38→17:37)
[2019-05-25] MEDS: Thiamine 100mg tab ORAL SCH (08:38)
[2019-05-25] MEDS: Miralax 17gm pkt ORAL SCH ×2 (08:40→17:37)
--- NOTE | 2019-05-25 08:44 | NUR ---
NURSE NOTES: RN held Miralax for constipation d/t patient loose BM this morning. Patient also had large 3 BM yesterday. will continue to monitor patient condition.
--- NOTE | 2019-05-25 10:19 | General Progress Note ---
Assessment/Plan Problem List: (1) UTI (urinary tract infection) ICD Codes: N39.0 - Urinary tract infection, site not specified SNOMED: 00382172 (2) CVA (cerebral vascular accident) ICD Codes: I63.9 - Cerebral infarction, unspecified SNOMED: 476116414 (3) Altered mental status ICD Codes: R41.82 - Altered mental status, unspecified SNOMED: 693867636 Qualifiers: Qualified Codes: R41.82 - Altered mental status, unspecified (4) Hypokalemia ICD Codes: E87.6 - Hypokalemia SNOMED: 81514495 (5) Hypomagnesemia ICD Codes: E83.42 - Hypomagnesemia SNOMED: 956033635 (6) Stroke ICD Codes: I63.9 - Cerebral infarction, unspecified SNOMED: 505636340 Qualifiers: Qualified Codes: I63.9 - Cerebral infarction, unspecified (7) Hypophosphatemia ICD Codes: E83.39 - Other disorders of phosphorus metabolism SNOMED: 4459851 (8) AA (alcohol abuse) ICD Codes: F10.10 - Alcohol abuse, uncomplicated SNOMED: 72553902 (9) Hypertensive nephrosclerosis ICD Codes: I12.9 - Hypertensive chronic kidney disease with stage 1 through stage 4 chronic kidney disease, or unspecified chronic kidney disease SNOMED: 767158550 Assessment/Plan: CT--Suspected nonhemorrhagic CVA left occipital region. ot pt st seeing. On rx for possible alcohol withdrawal. replacing lytes. rx possible uti e coli give sxt, change to po meds, titrate bp meds, needs ecf Subjective Constitutional: Reports: weakness HEENT: Reports: no symptoms Cardiovascular: Reports: no symptoms Respiratory: Reports: no symptoms Gastrointestinal/Abdominal: Reports: no symptoms Genitourinary: Reports: incontinence Neurologic/Psychiatric: Reports: weakness Endocrine: Reports: no symptoms Hematologic/Lymphatic: Reports: no symptoms Allergies: Coded Allergies: No Known Allergies (Unverified , 10/07/18) Objective Last 24 Hour Vital Signs Date Time Temp Pulse Resp B/P (MAP) Pulse Ox O2 Delivery O2 Flow Rate FiO2 05/25/19 09:00 Room Air 05/25/19 08:00 97.9 90 21 143/93 (110) 99 05/25/19 04:06 96.9 87 20 114/79 (91) 96 05/25/19 00:00 98.0 100 20 160/110 (127) 97 05/24/19 21:00 Room Air 05/24/19 20:00 97.9 97 18 175/110 (131) 97 05/24/19 16:00 97.6 85 17 154/109 (124) 98 05/24/19 12:00 97.6 91 18 131/86 (101) 98 Intake and Output 05/24/19 05/25/19 19:00 07:00 Intake Total 1500 ml Balance 1500 ml IV Total 600 ml Other 900 ml # Voids 3 Laboratory Tests 05/25/19 06:55: White Blood Count 6.0, Red Blood Count 4.15L, Hemoglobin 15.5, Hematocrit 43.1, Mean Corpuscular Volume 104H, Mean Corpuscular Hemoglobin 37.4H, Mean Corpuscular Hemoglobin Concent 36.0, Red Cell Distribution Width 12.3, Platelet Count 272, Mean Platelet Volume 6.2L, Neutrophils (%) (Auto) 63.1, Lymphocytes ( %) (Auto) 23.2, Monocytes (%) (Auto) 12.1H, Eosinophils (%) (Auto) 1.0, Basophils (%) (Auto) 0.7, Sodium Level 138, Potassium Level 4.9, Chloride Level 105, Carbon Dioxide Level 29, Anion Gap 4L, Blood Urea Nitrogen 2L, Creatinine 0.7, Estimat Glomerular Filtration Rate , Glucose Level 109H, Calcium Level 9.3 , Phosphorus Level 3.4 Height (Feet): 5 Height (Inches): 4.00 Weight (Pounds): 112 General Appearance: no apparent distress EENT: normal ENT inspection Neck: normal alignment Cardiovascular: normal rate, regular rhythm Respiratory/Chest: lungs clear Abdomen: non tender, soft Edema: no edema noted Arm (L), no edema noted Arm (R), no edema noted Leg (L), no edema noted Leg (R), no edema noted Pedal (L), no edema noted Pedal (R), no edema noted Generalized Neurologic: motor weakness, other - dysarthric Duc Wong MD May 25, 2019 10:19
[2019-05-25 12:00] VITALS: BP 116/76
--- NOTE | 2019-05-25 12:15 | NUR ---
NURSE NOTES: Patient seen by PT and assisted to sit on chair. patient needed extensive assist to move to chair nut tolerated well. patient had lunch sitting on chair. fall risk. RN closely supervised patient.
[2019-05-25 16:00] VITALS: BP 133/88
--- NOTE | 2019-05-25 19:30 | NUR ---
HAND-OFF: Report given to ARIC Mena.
--- NOTE | 2019-05-25 19:35 | NUR ---
NURSE NOTES: received report from ARIC Bonner. patient in bed. alert but confused. verbally responsive, disparate, tangential thinking. no respiratory distress noted., on room air. no facial grimacing. fall risk. yellow socks on, fall risk precautions in place. bed is in the lowest position and locked, side rials x2, bed alarm on. call light within reach. IV on LFA 20 saline lock. intact. will continue to provide plan of care and close monitoring of patient for fall risk.
[2019-05-25 20:00] VITALS: BP 111/71
[2019-05-25] MEDS: Losartan 50mg tab ORAL SCH (21:00)
[2019-05-26 00:14] VITALS: BP 115/70
[2019-05-26 03:36] VITALS: BP 95/66
--- NOTE | 2019-05-26 07:19 | NUR ---
HAND-OFF: Report given to ARIC Salinas.
--- NOTE | 2019-05-26 07:30 | NUR ---
NURSE NOTES: Received pt from LUZMARIA CORBETT. Pt is confused x1. pt is in RA, no SOB or acute respiratory distress noted. Pt has intact iv access LFA 22G SL. All needs attended, bed is locked and is in the lowest position. call light within easy reach. will continue to monitor.
[2019-05-26 08:00] VITALS: BP 115/80
[2019-05-26 08:33] LABS: BASOPHILS % (AUTO) 1.4 % (0.0-2.0); EOSINOPHILS % (AUTO) 1.2 % (0.0-3.0); HEMOGLOBIN 16.1 G/DL (12.0-16.0); LYMPHOCYTES % (AUTO) 36.1 % (20.0-45.0); MEAN CORPUSCULAR VOLUME 104 FL (80-99); MONOCYTES % (AUTO) 15.3 % (1.0-10.0); PLATELET COUNT 314 K/UL (150-450); RED BLOOD COUNT 4.32 M/UL (4.20-5.40); RED CELL DISTRIBUTION WIDTH 12.7 % (11.6-14.8); WHITE BLOOD COUNT 5.9 K/UL (4.8-10.8)
[2019-05-26 09:05] LABS: ALANINE AMINOTRANSFERASE 51 U/L (12-78); ALBUMIN 3.3 G/DL (3.4-5.0); ALBUMIN/GLOBULIN RATIO 0.8 (1.0-2.7); ALKALINE PHOSPHATASE 96 U/L (46-116); ANION GAP 6 mmol/L (5-15); ASPARTATE AMINO TRANSFERASE 40 U/L (15-37); BILIRUBIN,TOTAL 0.6 MG/DL (0.2-1.0); BLOOD UREA NITROGEN 6 mg/dL (7-18); CALCIUM 9.7 MG/DL (8.5-10.1); CARBON DIOXIDE 27 MMOL/L (21-32); CHLORIDE 105 MMOL/L (98-107); PHOSPHORUS 3.9 MG/DL (2.5-4.9); POTASSIUM 5.6 MMOL/L (3.5-5.1); SODIUM 138 MMOL/L (136-145)
[2019-05-26] MEDS: Losartan 50mg tab ORAL SCH (09:24)
[2019-05-26] MEDS: Miralax 17gm pkt ORAL SCH ×2 (09:24→17:29)
[2019-05-26] MEDS: Bactrim SS Tab ORAL SCH (09:24)
[2019-05-26] MEDS: Aspirin EC 81mg tab ORAL SCH (09:24)
[2019-05-26] MEDS: Magnesium Oxide 400mg tab ORAL SCH ×3 (09:24→17:28)
[2019-05-26] MEDS: Thiamine 100mg tab ORAL SCH (09:24)
[2019-05-26 12:00] VITALS: BP 118/84
--- NOTE | 2019-05-26 12:36 | NUR ---
CASE MANAGEMENT: REVIEW 05/26/19 SI:UTI; AMS; STROKE; HYPOKALEMIA; HYPOMAGNESEMIA 98.4 95 18 115/80 95% ON RA K+5.6 IS: MAG-OX PO TID ASPIRIN PO QD COZAAR PO BID NORVASC PO BID ASPIRIN PO QD THIAMINE PO QD MVT PO QD :4E MED SURG DCP: REFER TO [facility]
[2019-05-26] MEDS ORDERED: Varibar Pudding 230ml MC PRN (13:15)
[2019-05-26] MEDS ORDERED: Varibar Honey 250ml MC PRN (13:15)
[2019-05-26] MEDS ORDERED: Varibar Nectar 240ml MC PRN (13:15)
--- NOTE | 2019-05-26 13:19 | NUR ---
DISCHARGE PLANNING: PATIENT HAS BEEN REFFERED TO [facility] T:[phone] F:[phone] CLINICALS HAVE BEEN FAXED WAITING FOR APPROVAL
--- NOTE | 2019-05-26 13:42 | NUR ---
NURSE NOTES: pt is awake and stable, left unit for ST eval video, waiting to come back.
--- NOTE | 2019-05-26 14:00 | NUR ---
RD ASSESSMENT & RECOMMENDATIONS SEE CARE ACTIVITY FOR COMPLETE ASSESSMENT DAILY ESTIMATED NEEDS: Needs based on Cardiac, stroke; 51 kg 25-30 kcals/kg 5637-3007 total kcals 1-1.25 g protein/kg 51- 64 g total protein 25-30 mL/kg 8854-9376 total fluid mLs NUTRITION DIAGNOSIS: Chewing/ swallowing difficulty r/t dysphagia AEB pt adm w/ stroke s/p REHEATER eval w/ recs for liquified puree, honey thick diet, pt noted to be edentulous as well. PO DIET RECOMMENDATIONS: maintain Regular diet, liquified puree, honey thick as tolerated ADDITIONAL RECOMMENDATIONS: 1) Obtain a standing weight as able -> Or calibrated bed scale 2) Possible need for 1:1 feeds; pt appeared altered during mealtime. Rec mealtime assistance/ set up 3) continue Vit B1/ MVI supplement-> add Folate 4) Trend K (5.6), monitor need for dietary restriction 5) Continue Ensure Enlive TID w/ liquify puree texture diet
--- NOTE | 2019-05-26 14:12 | NUR ---
NURSE NOTES: pt backed from ST eval video. pt is awake and stable, continue to monitor.
[2019-05-26] MEDS ORDERED: VITAMIN B-1100 M2 ORAL (14:41)
[2019-05-26] MEDS ORDERED: MAG-OX 400400 MG ORAL (14:41)
[2019-05-26] MEDS ORDERED: ASPIRIN EC81 MG ORAL (14:41)
[2019-05-26] MEDS ORDERED: COZAAR50 MG ORAL (14:41)
[2019-05-26] MEDS ORDERED: BACTRIM SINGLE S1 EA ORAL (14:41)
[2019-05-26] MEDS ORDERED: MULTIVITAMINS1 EAC2 ORAL (14:41)
[2019-05-26] MEDS ORDERED: NORVASC2.5 MG ORAL (14:41)
[2019-05-26] MEDS ORDERED: ACETAMINOPHEN325 M1 ORAL (14:41)
--- NOTE | 2019-05-26 14:49 | General Progress Note ---
Assessment/Plan Problem List: (1) UTI (urinary tract infection) ICD Codes: N39.0 - Urinary tract infection, site not specified SNOMED: 80900223 (2) CVA (cerebral vascular accident) ICD Codes: I63.9 - Cerebral infarction, unspecified SNOMED: 486858930 (3) Altered mental status ICD Codes: R41.82 - Altered mental status, unspecified SNOMED: 429461139 Qualifiers: Qualified Codes: R41.82 - Altered mental status, unspecified (4) Hypokalemia ICD Codes: E87.6 - Hypokalemia SNOMED: 04831024 (5) Hypomagnesemia ICD Codes: E83.42 - Hypomagnesemia SNOMED: 004899890 (6) Stroke ICD Codes: I63.9 - Cerebral infarction, unspecified SNOMED: 118933348 Qualifiers: Qualified Codes: I63.9 - Cerebral infarction, unspecified (7) Hypophosphatemia ICD Codes: E83.39 - Other disorders of phosphorus metabolism SNOMED: 8650767 (8) AA (alcohol abuse) ICD Codes: F10.10 - Alcohol abuse, uncomplicated SNOMED: 07701052 (9) Hypertensive nephrosclerosis ICD Codes: I12.9 - Hypertensive chronic kidney disease with stage 1 through stage 4 chronic kidney disease, or unspecified chronic kidney disease SNOMED: 874451973 Assessment/Plan: CT--Suspected nonhemorrhagic CVA left occipital region. ot pt st seeing. On rx for possible alcohol withdrawal. replacing lytes. rx possible uti e coli give sxt, change to po meds, titrate bp meds, needs ecf Subjective Constitutional: Reports: weakness HEENT: Reports: no symptoms Cardiovascular: Reports: no symptoms Respiratory: Reports: no symptoms Gastrointestinal/Abdominal: Reports: no symptoms Genitourinary: Reports: incontinence Neurologic/Psychiatric: Reports: pre-existing deficit Endocrine: Reports: no symptoms Hematologic/Lymphatic: Reports: no symptoms Allergies: Coded Allergies: No Known Allergies (Unverified , 10/07/18) Objective Last 24 Hour Vital Signs Date Time Temp Pulse Resp B/P (MAP) Pulse Ox O2 Delivery O2 Flow Rate FiO2 05/26/19 12:00 97.8 92 18 118/84 (95) 95 05/26/19 09:24 95 115/80 05/26/19 09:24 115/80 05/26/19 09:00 Room Air 05/26/19 08:00 98.4 95 18 115/80 (92) 95 05/26/19 03:36 98.4 92 20 95/66 (76) 96 05/26/19 00:14 97.4 92 20 115/70 (85) 95 05/25/19 21:00 111/71 05/25/19 21:00 Room Air 05/25/19 20:00 97.7 98 20 111/71 (84) 95 05/25/19 17:37 91 133/88 05/25/19 16:00 98.0 91 19 133/88 (103) 98 Intake and Output 05/25/19 05/26/19 19:00 07:00 Intake Total 480 ml Balance 480 ml Intake Oral 480 ml # Voids 4 3 Laboratory Tests 05/26/19 08:05: White Blood Count 5.9, Red Blood Count 4.32, Hemoglobin 16.1H, Hematocrit 45.0, Mean Corpuscular Volume 104H, Mean Corpuscular Hemoglobin 37.2H, Mean Corpuscular Hemoglobin Concent 35.7, Red Cell Distribution Width 12.7, Platelet Count 314, Mean Platelet Volume 5.9L, Neutrophils (%) (Auto) 46.0, Lymphocytes ( %) (Auto) 36.1, Monocytes (%) (Auto) 15.3H, Eosinophils (%) (Auto) 1.2, Basophils (%) (Auto) 1.4, Sodium Level 138, Potassium Level 5.6H, Chloride Level 105, Carbon Dioxide Level 27, Anion Gap 6, Blood Urea Nitrogen 6L, Creatinine 1.0, Estimat Glomerular Filtration Rate , Glucose Level 111H, Calcium Level 9.7, Phosphorus Level 3.9, Total Bilirubin 0.6, Aspartate Amino Transf (AST/SGOT) 40H, Alanine Aminotransferase (ALT/SGPT) 51, Alkaline Phosphatase 96, Total Protein 7.3, Albumin 3.3L, Globulin 4.0, Albumin/Globulin Ratio 0.8L Height (Feet): 5 Height (Inches): 4.00 Weight (Pounds): 112 General Appearance: no apparent distress, confused EENT: normal ENT inspection Neck: normal alignment Cardiovascular: normal rate, regular rhythm Respiratory/Chest: lungs clear Abdomen: non tender, soft Edema: no edema noted Arm (L), no edema noted Arm (R), no edema noted Leg (L), no edema noted Leg (R), no edema noted Pedal (L), no edema noted Pedal (R), no edema noted Generalized Neurologic: motor weakness, disoriented Duc Wong MD May 26, 2019 14:49
--- NOTE | 2019-05-26 14:55 | NUR ---
SWALLOW/SPEECH THERAPY NOTE: COMPLETED MOD BARIUM SWALLOW STUDY COMPLETED, SEE FULL REPORT TO FOLLOW. INITIAL IMPRESSIONS: SIGNIFICANT ORAL PREP AND OROPHARYNGEAL DYSPHAGIA WITH INCREASED FROM MILD TO SEVERE OVERALL TRANSIT TIMES DUE SENSORIMOTOR DEFICITS AND COMPOUNDED BY SOB AND RESP DIFFICULTIES AND REDUCED COGNITIVE-BEHAVIORAL DEFICITS. NO ASPIRATION NOR SIGNIFICANT PENETRATION NOTED; HOWEVER, HAS HIGH RISK FOR BOTH PARTICULARLY IF ASPIRATION PRECAUTIONS AND SWALLOW STRATEGIES ARE NOT USED. GROSSLY FUNCTIONAL ESOPHAGEAL PHASE BUT HAD ONE EPISODE OF TRACE BACKFLOW THROUGH THE PHARYNGOESOPHAGEAL SEGMENT OPENING WITH NECTAR THICK LIQUIDS (CUP SEQUENTIAL SIPS) TRIAL TX: POOR ABILITY TO FOLLOW COMMANDS BUT DID SOMETIMES BENEFIT FROM CUES FOR EXTRA SWALLOW AND IT SAFER WITH TSP LEVEL (TAKES TOO MUCH VIA CUP/STRAW) AND MORE EFFICIENT WITH NECTAR THICK LIQUID CONSISTENCY. WHEN GIVEN PUDDING, DID CLEAR WITH LIQUID WASH BUT THIS CONSISTENCY NOT VERY EFFICIENT AT A MEAL LEVEL. PLAN: CONTIUE WITH CURRENT LIQUIFIED PUREED LIKE NECTAR THICK SOUP CONSISTENCY TSP ONLY AND USE OTHER UPDATED AND POSTED PRECAUTIONS WITH ONE TO ONE FEEDING. CONTINUE WITH PLAN OF CARE IN [facility] REPORT. EDUCATED/TRAINED STAFF IN UPDATED POSTED PRECAUTIONS. PLAN: CONTINUE W Addendum: 05/26/19 at 1458 by COURTNEY HANSON METER CHANGES RECORDS CLERK SWALLOW STATUS AND PLAN: SEE MODIFIED BARIUM SWALLOW STUDY [facility] SUMMARY AND REPORT TO FOLLOW. PER PHARM TECH, PATIENT TOLERATING CURRENT LIQUIFIED PUREED LIKE NECTAR THICK SOUP CONSISTENCY TSP ONLY WITH GOOD BUT SLOW INTAKE. ONLY COUGHED WHEN SOUP CONSISTENCY WAS THINNED OUT TOO MUCH. ADDED ENSURE ENLIVE SUPPLEMENT PER RD RECOMMENDATIONS. EDUCATED/TRAINED RN/PHARM TECH/FEEDER IN UPDATED AND POSTED PRECAUTIONS. PLAN: CONTINUE WITH PLAN OF CARE IN [facility] REPORT. D/
[2019-05-26 16:00] VITALS: BP 93/65
--- NOTE | 2019-05-26 16:02 | NUR ---
DISCHARGE PLANNED: DISCUSSED DISCHARGE WITH MD PATIENT HAS BEEN ACCEPTED TO SPOKE TO [facility] T:[phone] ( CALL WITH ANY ISSUES) [facility] T: [phone] FOR NURSE TO NURSE REPORT ROOM # 26 [facility] CALLED PICKUP TIME @1630 AISHA GARCÍA ([id number]) NOTIFIED OF PATIENT TRANSFER
[2019-05-26 17:29] VITALS: BP 93/65
--- NOTE | 2019-05-26 18:20 | NUR ---
NURSE NOTES: pt has D/C order, all discharge assessments and instructions done. pt is stable, V/S stable. Report given to SNF ARIC MAJOR. all belongings are with pt, pt has front seat wheelchair is with her. iv access D/C. Pt's brother in law JEZ LEONARD notified. skin is in tact. pt left hospital with ambulance personnel
--- NOTE | 2019-05-27 15:28 | Discharge Summary ---
Discharge Summary Discharge Summary _ DATE OF ADMISSION: 05/21/2019 DATE OF DISCHARGE: 05/26/2019 DISCHARGED BY: REASON FOR ADMISSION: 82 years old female with past medical history of dementia, ETOH abuse, presented to emergency department with altered level of consciousness. Information was obtained from significant other , who left without any contact information. Patient apparently was drinking in the morning. Patient was brought due to being altered from her baseline. Upon evaluation vital signs were stable. Laboratory work-up revealed no leukocytosis, stable hemoglobin and hematocrit. Lactic acid 1.1. Urinalysis revealed +2 protein, +2 leukocyte esterase, pyuria and bacteria. Urine toxicology screen was negative . Chemistry revealed potassium 1.3, sodium 147, chloride 116. Magnesium 0.8 , phosphorus 1.3 . BUN 7 , creatinine 0.3 , AST 45, ALT 31, lipase 34. Troponin 0.016 , pro-BNP 233. Serum alcohol less than 3 Repeated BMP after initial replacement in ED showed potassium 2.5, sodium 138. EKG revealed sinus rhythm , no acute ischemic changes. Chest x-ray revealed no acute cardiopulmonary pathology. CT of the head revealed suspected nonhemorrhagic CVA in the left occipital region. Moderate atrophy of the brain. Evidence of chronic small vessel disease, involving white matter tracts. Stroke was greater than 24 hours ; out of the window ; no acute indication for TPA. Patient subsequently was admitted to stepdown unit for further management. HOSPITAL COURSE: Patient admitted to direct observational unit. Patient started on IV fluids with multivitamins and minerals . Anxiolytic were on board as needed to prevent alcohol withdrawal symptoms. Antiplatelet therapy with aspirin started. Blood pressure was managed with angiotensin receptor sanchez and calcium channel sanchez, remained stable. Supplemental oxygen provided as needed to keep pulse oximetry above 92%. Urine culture revealed E. coli. Patient was on antibiotic for urinary tract infection. Repeated urine culture showed mixed gram-positive organisms. Electrolytes were closely monitored and further corrected as needed. Patient undergone bedside and video swallow evaluation, which revealed high silent aspiration risk. Diet texture provided as per speech therapist recommendation with strict aspiration precaution. Patient was continued on multivitamins, thiamine and folic acid. Fall precautions maintained. Patient was working with physical therapist. [facility]. Patient was stable for transfer. FINAL DIAGNOSES: Acute nonhemorrhagic CVA left occipital region Severe electrolytes abnormalities : severe hypokalemia , hypomagnesemia and hypophosphatemia ETOH abuse Dementia of Alzheimer type E coli UTI Altered mental status , likely due to acute CVA DISCHARGE MEDICATIONS: See Medication Reconciliation list. DISCHARGE INSTRUCTIONS: [facility]. Follow up with medical doctor at the facility. I have been assigned to dictate discharge summary for this account. I was not involved in the patient's management. Dayan Finn NP May 27, 2019 15:28
--- NOTE | 2019-05-28 14:07 | Diagnostic Imaging Report ---
Indications: Reason For Exam: DYSPHAGIA Technique: Patient ingested multiple substances under the supervision of speech pathology. Video fluoroscopic recording performed. Total fluoroscopy time 295.2 seconds. Total dose area product 0.12061 mGycm2 Total number of images-11 Comparison: none Findings: Sequential sips of thin and nectar thick liquid barium results in trace subglottic laryngeal penetration. No shekhar aspiration. There is some early pooling of substances. No aspiration or penetration of honey thick liquid barium or barium pudding. There is delay in initiation of deglutition of multiple substances Impression: Trace aspiration of thin and nectar thick liquid barium Please refer to speech pathology report for more detailed analysis
== END 2019-05-26 18:22 | DRG 65 ==
LOC: EMR 21:00 → 2W 21:26 → EDBEDREQ 05-22 00:29 → EDBEDREQTM 05-22 00:29 → EDBEDREQSVC 05-22 00:29 → EDBEDREQ 05-22 00:30 → 2E 05-22 03:41 → 4E 05-24 09:36
DX: I63.89 Other cerebral infarction (principal); N39.0 Urinary tract infection, site not specified; R41.82 Altered mental status, unspecified; E87.6 Hypokalemia; E83.42 Hypomagnesemia; Z59.0 Homelessness; F10.20 Alcohol dependence, uncomplicated; G30.9 Alzheimer's disease, unspecified; F02.80 Dementia in other diseases classified elsewhere, unspecified severity, without behavioral disturbance, psychotic disturbance, mood disturbance, and anxiety; E83.39 Other disorders of phosphorus metabolism; B96.20 Unspecified Escherichia coli [E. coli] as the cause of diseases classified elsewhere; I12.9 Hypertensive chronic kidney disease with stage 1 through stage 4 chronic kidney disease, or unspecified chronic kidney disease; N18.9 Chronic kidney disease, unspecified
CPT/HCPCS: 36415; 70450; 71045; 74230; 80048; 80053; 80061; 80307; 81003; 82550; 82553; 83605; 83690; 83735; 83880; 84100; 84443; 84484; 85025; 85610; 85730; 87086; 87181; 93005; 93970; 96361; 96365; 96366; 96368; 96372; 96375; 99291; G0480; J7030; J8499